=== PATIENT | female | born 1965 | race Caucasian/White ===

== ENCOUNTER 2019-02-04 13:59 | Outpatient (RCR) | payer OTHER, SELFPAY ==
[2019-02-04 14:04] VITALS: BMI 31.6
[2019-02-04 14:14] VITALS: BMI 31.6
== END 2019-05-05 23:59 | disposition home or self-care (01) ==
LOC: ANHDMC 13:59
PROVIDERS: PCP Student in an Organized Health Care Education/Training Program; Visit Provider Student in an Organized Health Care Education/Training Program
DX: Z68.32 Body mass index [BMI] 32.0-32.9, adult (principal); Z71.3 Dietary counseling and surveillance
CPT/HCPCS: 97803

== ENCOUNTER 2019-04-05 10:16 | Emergency (ER) | payer OTHER, SELFPAY ==
[2019-04-05 10:18] VITALS: BP 163/67; PULSE 97; RESP 16; TEMP 37.1; O2SAT 99
--- NOTE | 2019-04-05 10:35 | ED.GENADULT ---
HPI - General Adult General Chief complaint: Wound/Laceration Stated complaint: lip lac Time Seen by Provider: 04/05/19 10:28 Source: patient Mode of arrival: ambulatory Limitations: no limitations History of Present Illness HPI narrative: Patient is a 53-year-old female who presents to emergency department for evaluation of lip laceration that occurred just prior to arrival patient was struck with a trash can lid in the lip sustaining through and through laceration of the lower lip to not include the vermilion border patient notes her tetanus is not up-to-date. . Patient notes mild aching pain worse with touch denies other complaints and is presenting in no distress Related Data Home Medications Medication Instructions Recorded Confirmed cholecalciferol (vitamin D3) unit PO 04/05/19 liothyronine mcg 04/05/19 potassium iodide mg 04/05/19 spironolactone 04/05/19 thyroid (pork) [[place] Thyroid] 04/05/19 Allergies Allergy/AdvReac Type Severity Reaction Status Date / Time epinephrine AdvReac Palpitation Verified 04/05/19 10:51 s Review of Systems Review of Systems: Narrative: CONSTITUTIONAL: Denies fever, chills, or sweats. EYES: Denies redness, or discharge. ENT: Denies rhinorrhea, dental pain SKIN: Positive for laceration MUSCULOSKELETAL: Denies neck pain NEUROLOGIC: Denies headache, numbness PMFSH Family History Family History (Updated 10/28/13 @ 07:13 by DOCTOR UNKNOWN) Father Family history of heart disease in male family member before age 55 Social History Social History Second hand tobacco smoke exposure: No Alcohol intake: never Spiritual care concerns: No Exam Narrative: Exam Narrative: GENERAL: Well-appearing, well-nourished, and in no acute distress. HEAD: Normocephalic, lip laceration EYES: PERRLA and EOMI. ENT: Nares clear, no rhinorrhea or epistaxis. Mucous membranes moist. No dental trauma noted EXTREMITIES: Normal range of motion. No edema. No cervical tenderness SKIN: Warm, dry, no rash. NEURO: No focal deficits. Alert and oriented x3. Cranial nerves II through XII grossly intact. Normal speech and gait PSYCH: Normal mood and affect. Course Course Emergency Course: Patient in the room in no distress aware of case findings treatment plan and diagnosis Vital Signs Vital signs: Vital Signs Temperature 98.8 F 04/05/19 10:18 Pulse Rate 97 04/05/19 10:18 Respiratory Rate 16 04/05/19 10:18 Blood Pressure 163/67 H 04/05/19 10:18 Pulse Oximetry 99 04/05/19 10:18 Temperature 98.8 F 04/05/19 10:18 Pulse Rate 97 04/05/19 10:18 Respiratory Rate 16 04/05/19 10:18 Blood Pressure 163/67 H 04/05/19 10:18 Pulse Oximetry 99 04/05/19 10:18 Procedures Laceration Laceration 1: Date: 04/05/19 Time: 11:22 Site: face Size (cm): 1.5 Description: linear Local Anesthetic: none Pre-repair: wound explored and irrigated ====== Skin Level ====== Skin layer closed with: nylon Size (cm): 6-0 Number of sutures: 3 ====== Subcutaneous Layer ====== ====== Muscle Layer ====== ====== Tendon Layer ====== Medical Decision Making MDM Narrative Medical decision making narrative: Patient had wound closed in the emergency department without complication resting comfortably in the room in no distress felt appropriate for outpatient reevaluation provided with reasons to return Vital Signs Vital Signs: Vital Signs Temperature 98.8 F 04/05/19 10:18 Pulse Rate 97 04/05/19 10:18 Respiratory Rate 16 04/05/19 10:18 Blood Pressure 163/67 H 04/05/19 10:18 Pulse Oximetry 99 04/05/19 10:18 Temperature 98.8 F 04/05/19 10:18 Pulse Rate 97 04/05/19 10:18 Respiratory Rate 16 04/05/19 10:18 Blood Pressure 163/67 H 04/05/19 10:18 Pulse Oximetry 99 04/05/19 10:18 Discharge Plan Discharge
[2019-04-05] MEDS: TETANUS,DIPHTHERIA,AC PERTUSSIS ADULT 0.5 ML (ADACEL) IM (11:03)
== END 2019-04-05 11:31 | disposition home or self-care (01) ==
PROVIDERS: Emergency Provider Emergency Medicine; PCP Student in an Organized Health Care Education/Training Program
DX: S01.511A Laceration without foreign body of lip, initial encounter (principal); W22.8XXA Striking against or struck by other objects, initial encounter
CPT/HCPCS: 12011; 90471; 90715; 99282

== ENCOUNTER 2019-07-14 07:52 | Outpatient (CLI) | payer OTHER, SELFPAY ==
--- NOTE | ~2019-07-14 | MM_ITS ---
EXAMINATION: MM screening [facility] BI w chip HISTORY: Screening mammogram TECHNIQUE: Craniocaudal and mediolateral oblique 3-D tomosynthesis images were obtained and synthetic 2-D images were generated. CAD analysis was submitted and interpreted. COMPARISON: 07/09/2018, 05/22/2017, 03/01/2016 bilateral digital screening mammogram examinations BREAST PARENCHYMAL COMPOSITION: There are scattered areas of fibroglandular density. FINDINGS: There is no evidence of suspicious mass, calcification, or architectural distortion to sugg est malignancy in either breast. There has been no suspicious interval change. IMPRESSION: 1. No mammographic evidence of malignancy. 2. Recommend routine screening mammography in one year. BI-RADS Category 1: Negative Reviewed, dictated and finalized at location A.
== END 2019-07-14 07:53 | disposition home or self-care (01) ==
PROVIDERS: PCP Student in an Organized Health Care Education/Training Program
DX: Z12.31 Encounter for screening mammogram for malignant neoplasm of breast (principal)
CPT/HCPCS: 77063; 77067

== ENCOUNTER 2019-09-27 07:28 | Outpatient (CLI) | payer OTHER, SELFPAY ==
[2019-09-27 08:16] LABS: Basophils Percent Auto 0.1 % (0.2-1.2); Eosinophils Absolute Auto 0.1 K/mm3 (0-0.3); Eosinophils Percent Auto 1.4 % (0-4.4); Hematocrit 44.7 % (37.0-47.0); Hemoglobin 14.8 g/dL (12.0-15.0); Immature Granulocyte Absolute 0.02 K/mm3 (0.00-0.031); Immature Granulocyte Percent A 0.2 % (0-0.5); Lymphocytes Absolute Auto 2.57 K/mm3 (0.9-3.2); Lymphocytes Percent Auto 28.4 % (18.3-44.2); Mean Corpuscular HGB Conc 33.1 g/dl (32-36); Mean Corpuscular Hemoglobin 29.2 pg (26-34); Mean Corpuscular Volume 88.3 fl (80-100); Mean Platelet Volume 10.2 fl (7.4-10.4); Monocytes Absolute Auto 0.4 K/mm3 (0.1-0.6); Monocytes Percent Auto 4.6 % (2.6-8.5); Neutrophils Absolute Auto 5.9 K/mm3 (1.3-6.7); Neutrophils Percent Auto 65.3 % (45.5-73.1); Platelet Count Result 263 k/mm3 (150-375); Red Blood Count 5.06 M/mm3 (4.2-5.4); Red Cell Distribution Width 11.8 % (11.5-14.5); White Blood Count 9.1 K/mm3 (4.5-10.0)
[2019-09-27 08:37] LABS: Alanine Aminotransferase 53 U/L (4-35); Albumin Level 4.5 g/dL (3.5-5.1); Alkaline Phosphatase 72 U/L (38-126); Anion Gap 12.6 mmol/L (7-16); Aspartate Amino Transferase 32 U/L (14-36); Bilirubin,Total 0.5 mg/dL (0.2-1.3); Blood Urea Nitrogen 11 mg/dL (7-17); CRP < 0.5 mg/dL (<1.0); Calcium 9.6 mg/dL (8.4-10.2); Carbon Dioxide 27 mmol/L (22-30); Chloride 100 mmol/L (98-107); Estimated Glomerular Filt Rate > 60; Glucose 96 mg/dL (65-105); Potassium 4.6 mmol/L (3.4-5.0); Sodium 135 mmol/L (137-145)
[2019-09-27 08:59] LABS: Thyroid Stimulating Hormone < 0.015 uIU/mL (0.465-4.680)
[2019-09-27 09:04] LABS: Free T4 Free Thyroxine 0.64 ng/mL (0.78-2.19)
[2019-09-27 13:03] LABS: Cortisol Random 8.08 ug/dL
[2019-10-01 14:13] LABS: Testosterone Free 23.6 pg/mL (0.2-5.0)
[2019-10-02 06:28] LABS: FSH 30.1 mIU/mL (***); LH 21.2 mIU/mL (***); Triiodothyronine T3 Free 2.9 pg/mL (2.3-4.2)
[2019-10-03 17:36] LABS: Estrone 48 pg/mL
[2019-10-03 22:37] LABS: Estradiol, Ultrasensitive 79 pg/mL
[2019-10-04 10:40] LABS: Z Score Female 0.4 SD (-2.0 - +2.0)
== END 2019-09-27 07:29 | disposition home or self-care (01) ==
PROVIDERS: PCP Student in an Organized Health Care Education/Training Program
DX: E03.8 Other specified hypothyroidism (principal); E66.8 Other obesity; R79.82 Elevated C-reactive protein (CRP); E88.81 Metabolic syndrome and other insulin resistance; N95.1 Menopausal and female climacteric states; F52.0 Hypoactive sexual desire disorder
CPT/HCPCS: 36415; 80053; 82533; 82670; 82679; 83001; 83002; 84305; 84402; 84439; 84443; 84481; 85025; 86140

== ENCOUNTER 2020-01-19 06:56 | Outpatient (CLI) | payer OTHER, SELFPAY ==
[2020-01-19 07:41] LABS: Alanine Aminotransferase 40 U/L (4-35); Aspartate Amino Transferase 33 U/L (14-36); Cholesterol 148 mg/dL (0-200); HDL Direct 39 mg/dL; Triglycerides 173 mg/dL (<150)
[2020-01-19 07:50] LABS: Hemoglobin A1C 5.2 % (<5.7)
[2020-01-19 07:52] LABS: LDL Cholesterol Direct 91 mg/dL
[2020-01-19 10:21] LABS: Free T4 Free Thyroxine 1.03 ng/mL (0.78-2.19)
[2020-01-19 10:31] LABS: Hepatitis B Surface Antigen Negative (Negative)
[2020-01-19 10:36] LABS: HAV RESULT Negative (Negative); Hepatitis B Core IgM Result Negative (Negative)
[2020-01-19 10:48] LABS: Hepatitis C Virus Antibody Negative (Negative)
[2020-01-23 00:24] LABS: Homocysteine 4.9 umol/L (<10.4)
[2020-01-24 18:22] LABS: Estradiol, Ultrasensitive 76 pg/mL
[2020-01-24 20:41] LABS: Estrone 45 pg/mL
[2020-01-25 06:58] LABS: Insulin Level Total 5.5 uIU/mL (<=19.6); Thyroglobulin Antibodies <1 IU/mL (<=1); Thyroid Peroxidase Antibodies <1 IU/mL (<9)
[2020-01-26 07:07] LABS: FSH 11.3 mIU/mL (***); LH 3.1 mIU/mL (***); Progesterone 2.1 ng/mL (***); Triiodothyronine T3 Free 4.3 pg/mL (2.3-4.2)
== END 2020-01-19 06:57 | disposition home or self-care (01) ==
PROVIDERS: PCP Student in an Organized Health Care Education/Training Program; Visit Provider Student in an Organized Health Care Education/Training Program
DX: Z13.220 Encounter for screening for lipoid disorders (principal); N95.1 Menopausal and female climacteric states; E34.9 Endocrine disorder, unspecified; Z79.890 Hormone replacement therapy; E03.9 Hypothyroidism, unspecified; R79.82 Elevated C-reactive protein (CRP); E55.9 Vitamin D deficiency, unspecified; D51.9 Vitamin B12 deficiency anemia, unspecified; E53.9 Vitamin B deficiency, unspecified; R94.5 Abnormal results of liver function studies; Z00.00 Encounter for general adult medical examination without abnormal findings; E78.2 Mixed hyperlipidemia; R73.03 Prediabetes; R68.82 Decreased libido; R53.83 Other fatigue; R63.5 Abnormal weight gain; F43.9 Reaction to severe stress, unspecified
CPT/HCPCS: 36415; 80061; 80074; 82306; 82607; 82670; 82679; 83001; 83002; 83036; 83090; 83525; 84144; 84432; 84439; 84450; 84460; 84481; 86376; 86800

== ENCOUNTER 2020-08-28 07:18 | Outpatient (CLI) | payer OTHER, SELFPAY ==
[2020-08-28 08:02] LABS: Basophils Percent Auto 0.1 % (0.2-1.2); Eosinophils Absolute Auto 0.1 K/mm3 (0-0.3); Eosinophils Percent Auto 1.1 % (0-4.4); Hematocrit 42.8 % (37.0-47.0); Immature Granulocyte Absolute 0.04 K/mm3 (0.00-0.031); Immature Granulocyte Percent A 0.4 % (0-0.5); Lymphocytes Absolute Auto 2.53 K/mm3 (0.9-3.2); Lymphocytes Percent Auto 25.5 % (18.3-44.2); Mean Corpuscular HGB Conc 32.7 g/dl (32-36); Mean Corpuscular Hemoglobin 28.9 pg (26-34); Mean Corpuscular Volume 88.4 fl (80-100); Mean Platelet Volume 10.1 fl (7.4-10.4); Monocytes Absolute Auto 0.6 K/mm3 (0.1-0.6); Monocytes Percent Auto 5.8 % (2.6-8.5); Neutrophils Absolute Auto 6.7 K/mm3 (1.3-6.7); Neutrophils Percent Auto 67.1 % (45.5-73.1); Platelet Count Result 270 k/mm3 (150-375); Red Blood Count 4.84 M/mm3 (4.2-5.4); Red Cell Distribution Width 11.5 % (11.5-14.5); White Blood Count 9.9 K/mm3 (4.5-10.0)
[2020-08-28 08:17] LABS: Hemoglobin A1C 5.5 % (<5.7)
[2020-08-28 08:18] LABS: Alanine Aminotransferase 27 U/L (4-35); Albumin Level 4.3 g/dL (3.5-5.1); Alkaline Phosphatase 56 U/L (38-126); Anion Gap 6 mmol/L (8-16); Aspartate Amino Transferase 26 U/L (14-36); Bilirubin,Total 0.4 mg/dL (0.2-1.3); Blood Urea Nitrogen 11 mg/dL (7-17); CRP < 0.5 mg/dL (<1.0); Calcium 9.6 mg/dL (8.4-10.2); Carbon Dioxide 27 mmol/L (22-30); Chloride 107 mmol/L (98-107); Cholesterol 170 mg/dL (0-200); Estimated Glomerular Filt Rate > 60; Glucose 95 mg/dL (65-105); HDL Direct 42 mg/dL; Potassium 4.2 mmol/L (3.4-5.0); Sodium 140 mmol/L (137-145); Triglycerides 304 mg/dL (<150)
[2020-08-28 08:27] LABS: LDL Cholesterol Direct 81 mg/dL
[2020-08-28 08:48] LABS: Cortisol Random 7.16 ug/dL
[2020-08-28 08:49] LABS: Thyroid Stimulating Hormone < 0.015 uIU/mL (0.465-4.680)
[2020-08-28 09:17] LABS: Free T4 Free Thyroxine 0.71 ng/mL (0.78-2.19); Vitamin D 25 Hydroxy 68.2 ng/mL
[2020-08-30 06:41] LABS: Homocysteine 5.8 umol/L (<10.4)
[2020-08-31 13:45] LABS: FSH 13.1 mIU/mL (***); LH 2.6 mIU/mL (***); Progesterone 3.4 ng/mL (***); Triiodothyronine T3 Free 3.5 pg/mL (2.3-4.2)
[2020-09-01 05:42] LABS: Insulin Level Total 5.6 uIU/mL (<=19.6)
[2020-09-01 12:05] LABS: Z Score Female 0.4 SD (-2.0 - +2.0)
[2020-09-01 21:43] LABS: Estrone 25 pg/mL
[2020-09-02 09:55] LABS: Testosterone Free 29.3 pg/mL (0.2-5.0)
[2020-09-02 19:42] LABS: Estradiol, Ultrasensitive 64 pg/mL
== END 2020-08-28 07:19 | disposition home or self-care (01) ==
PROVIDERS: PCP Student in an Organized Health Care Education/Training Program
DX: N95.1 Menopausal and female climacteric states (principal); E34.9 Endocrine disorder, unspecified; Z79.890 Hormone replacement therapy; E03.9 Hypothyroidism, unspecified; E66.8 Other obesity; E88.81 Metabolic syndrome and other insulin resistance; E55.9 Vitamin D deficiency, unspecified; D51.9 Vitamin B12 deficiency anemia, unspecified; E72.11 Homocystinuria; E53.9 Vitamin B deficiency, unspecified; R94.5 Abnormal results of liver function studies; E78.2 Mixed hyperlipidemia; R68.82 Decreased libido; R53.83 Other fatigue; F43.9 Reaction to severe stress, unspecified
CPT/HCPCS: 36415; 80053; 80061; 82306; 82533; 82607; 82670; 82679; 83001; 83002; 83036; 83090; 83525; 84144; 84305; 84402; 84439; 84443; 84481; 85025; 86140

== ENCOUNTER 2020-08-31 07:29 | Outpatient (CLI) | payer OTHER, SELFPAY ==
--- NOTE | ~2020-08-31 | MM_ITS ---
EXAMINATION: MM screening [facility] BI w chip HISTORY: Screening TECHNIQUE: Craniocaudal and mediolateral oblique 3-D tomosynthesis images were obtained and synthetic 2-D images were generated. CAD analysis was submitted and interpreted. COMPARISON: Comparison to multiple prior studies sequentially, with oldest reviewed study dated 02/02. BREAST PARENCHYMAL COMPOSITION: There are scattered areas of fibroglandular density. FINDINGS: There is no evidence of suspicious mass, calcification, or architectural distortion to sugg est malignancy in either breast. There has been no suspicious interval change. IMPRESSION: 1. No mammographic evidence of malignancy. 2. Recommend routine screening mammography in one year. BI-RADS Category 1: Negative Reviewed, dictated and finalized at location A.
== END 2020-08-31 07:30 | disposition home or self-care (01) ==
PROVIDERS: PCP Student in an Organized Health Care Education/Training Program; Visit Provider Student in an Organized Health Care Education/Training Program
DX: Z12.31 Encounter for screening mammogram for malignant neoplasm of breast (principal)
CPT/HCPCS: 77063; 77067

== ENCOUNTER 2020-11-30 14:30 | Outpatient (RCR) | payer OTHER, SELFPAY ==
--- NOTE | 2020-10-24 17:32 | PTOPEVAL ---
INITIAL PHYSICAL THERAPY EVALUATION and PLAN OF CARE Thank you for referring Jelena Dominguez to [facility] [place]Note 2[place]? Jelena is scheduled to be seen for physical therapy? 0-1x/week for 6 weeks. Please review, sign, date and return this plan of care LUDWIN. I agree with and certify that the following plan of care is medically necessary. Referring Physician Date Admitting Provider: Attending Provider: Amarilis De Santiago Referring Provider: *PT Outpatient Evaluation Start: 10/24/20 13:52 Freq: Status: Active Protocol: Document 10/24/20 13:45 BLADIMIR (Rec: 10/24/20 15:04 BLADIMIR [id number]) Therapy Assessment Status Assessment Status Assessment Status Evaluation Outpatient Past Medical History Past Medical History Source of Past Medical History Patient Genitourinary History Hx Other Genitourinary Disorders Yes: urinary frequency, prolapse Endocrine History Hx Hypothyroidism Yes Reproductive History Hx Post Menopausal Yes Evaluation Information Problem Diagnosis urinary frequency, urinary urgency,mixed incontinence, pelvic floor weakness Onset July 2020 Subjective Information Jelena was shaving perineal Query Text:As Reported By Patient/ region getting ready for swim Family suit season - noticed something in vaginal region. Went to see CONGRESSIONAL ASSISTANT - pessary was placed - wrong size - resized at next visit - feeling better. At first visit - increase with bladder retention - 2nd visit - didn't check for retention because she voided more urine. Did not have any pain when noticed prolapse. Surgery scheduled 01/23/2021 - remove uterus, ? 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 Home pellet, baby aspirin, Meds Must Be Re-entered With Each Visit. Metformin XR - for wt not DM, spironloctone Home Setting Home Type House,Multiple Levels Environmental Barriers Stairs, Greater than 4 Living Situation With Spouse Mobility Assistive Devices (Used Last 3 Non
--- NOTE | 2020-11-30 16:02 | PTOPEVAL ---
PHYSICAL THERAPY DISCHARGE SUMMARY Thank you for referring Jelena Dominguez to [facility] Jelena has been seen x 4 visits. She is progressing well in PT - has met goals set. Ready for d/c from PT to HEP. I agree with Jelena's discharge from PT. Referring Physician Date Admitting Provider: Attending Provider: Amarilis De Santiago MD Referring Provider: ) Therapy Assessment Status Assessment Status Assessment Status Discharge Evaluation Information Problem Diagnosis urinary frequency, urinary urgency,mixed incontinence, pelvic floor weakness Subjective Information Jelena having some increase in Query Text:As Reported By Patient/ leakage. Having some Family difficulty with the pessary positioning this past week - noticed more so with need to have bowel movement. Doing okay with the exercises. Jelena perceives that she is 50% improved. Pain Assessment Timing of Pain Assessment Timing of Pain Assessment Assessment Self Report Self Report Pain Level 0 Pain Score Pain Score 0: Self Report Pelvic Health Evaluation Pelvic Floor Assessment Sustained Levator Ani Strength 3/[address] hold Quick Levator Ani Contraction in 15 12 Seconds Pelvic Health Therapy Pelvic Health Exercise Isolated Levator Ani Contraction [address] hold/10 ct relax x Query Text:Position, Hold/Relaxation 5 reps Time, Repetitions Quick Contractions testing - 12 reps Query Text:Position, Repetitions Therapeutic Ball 65 cm ball side/side;front/ Query Text:Movement Direction, back;CW/CCW, figure of 8 15 Repetitions reps Elevator Techniques going up x 4fls 5 ct Query Text:Repetitions, Number of [id number];going down x3 fls Steps Going Up, Number of Steps Going x5 reps;variable x 5 reps Down Resistive 'Shh' Technique long, soft x 5 reps, quick, Query Text:Quick, Hard, Long, Soft, hard x 5 reps Number of Repetitions Relaxation Technique deep breathing for relaxation - urge control - reviewed Other Exercises standing - plie - with mild ER Query Text:Record Sets, Repetitions, of feet - tightening pelvic Resistance and Position floor with knee extension - reviewed Exercise Limitations Muscle Weakness Response to Exercise Maintained Current Level Endurance Good Rehab Teaching Rehab Teaching Teaching Topic Rehab Teaching Topic Components Exercise,Home Program As Pertains To
== END 2020-12-01 13:47 | disposition home or self-care (01) ==
LOC: ANHPT 14:30
PROVIDERS: PCP Student in an Organized Health Care Education/Training Program
DX: R35.0 Frequency of micturition (principal); R33.9 Retention of urine, unspecified; N39.46 Mixed incontinence; N81.89 Other female genital prolapse; M62.89 Other specified disorders of muscle
CPT/HCPCS: 97110; 97161

== ENCOUNTER 2021-08-30 07:22 | Outpatient (CLI) | payer OTHER, SELFPAY ==
[2021-08-30 08:12] LABS: Basophils Percent Auto 0.1 % (0.2-1.2); Eosinophils Absolute Auto 0.1 K/mm3 (0-0.3); Hemoglobin 14.2 g/dL (12.0-15.0); Immature Granulocyte Absolute 0.02 K/mm3 (0.00-0.031); Immature Granulocyte Percent A 0.2 % (0-0.5); Lymphocytes Absolute Auto 2.58 K/mm3 (0.9-3.2); Lymphocytes Percent Auto 28.9 % (18.3-44.2); Mean Corpuscular HGB Conc 33.8 g/dl (32-36); Mean Corpuscular Hemoglobin 29.5 pg (26-34); Mean Corpuscular Volume 87.3 fl (80-100); Monocytes Absolute Auto 0.5 K/mm3 (0.1-0.6); Monocytes Percent Auto 5.2 % (2.6-8.5); Neutrophils Absolute Auto 5.8 K/mm3 (1.3-6.7); Neutrophils Percent Auto 64.6 % (45.5-73.1); Platelet Count Result 274 k/mm3 (150-375); Red Blood Count 4.81 M/mm3 (4.2-5.4); Red Cell Distribution Width 11.4 % (11.5-14.5); White Blood Count 8.9 K/mm3 (4.5-10.0)
[2021-08-30 08:26] LABS: Hemoglobin A1C 5.4 % (<5.7)
[2021-08-30 08:32] LABS: Alanine Aminotransferase 32 U/L (6-35); Albumin Level 4.6 g/dL (3.5-5.1); Alkaline Phosphatase 56 U/L (38-126); Anion Gap 8 mmol/L (8-16); Aspartate Amino Transferase 28 U/L (14-36); Bilirubin,Total 0.6 mg/dL (0.2-1.3); Blood Urea Nitrogen 11 mg/dL (7-17); CRP < 0.5 mg/dL (<1.0); Calcium 9.2 mg/dL (8.4-10.2); Carbon Dioxide 26 mmol/L (22-30); Chloride 104 mmol/L (98-107); Cholesterol 191 mg/dL (0-200); Estimated Glomerular Filt Rate > 60; Glucose 103 mg/dL (65-110); HDL Direct 46 mg/dL; Potassium 4.2 mmol/L (3.4-5.0); Sodium 138 mmol/L (137-145); Triglycerides 155 mg/dL (<150)
[2021-08-30 08:36] LABS: LDL Cholesterol Direct 107 mg/dL
[2021-08-30 09:27] LABS: Thyroid Stimulating Hormone < 0.015 uIU/mL (0.465-4.680); Vitamin B12 > 1000.0 pg/mL (239-931)
[2021-08-30 10:55] LABS: Free T4 Free Thyroxine 0.99 ng/mL (0.78-2.19); Vitamin D 25 Hydroxy 74.3 ng/mL
[2021-09-02 14:16] LABS: FSH 6.4 mIU/mL (***); Insulin Level Total 10.3 uIU/mL (<=19.6); LH 1.9 mIU/mL (***); Triiodothyronine T3 Free 4.2 pg/mL (2.3-4.2)
[2021-09-03 09:45] LABS: Testosterone Free 37.2 pg/mL (0.2-5.0)
[2021-09-04 21:48] LABS: Homocysteine 4.9 umol/L (<10.4)
[2021-09-04 22:34] LABS: Estrone 33 pg/mL
[2021-09-07 21:58] LABS: Estradiol, Ultrasensitive 117 pg/mL
== END 2021-08-30 07:23 | disposition home or self-care (01) ==
LOC: ANHLAB 07:27
PROVIDERS: PCP Student in an Organized Health Care Education/Training Program
DX: N95.1 Menopausal and female climacteric states (principal); E34.9 Endocrine disorder, unspecified; Z79.890 Hormone replacement therapy; E03.9 Hypothyroidism, unspecified; E66.8 Other obesity; E55.9 Vitamin D deficiency, unspecified; D51.9 Vitamin B12 deficiency anemia, unspecified; E72.11 Homocystinuria; E53.9 Vitamin B deficiency, unspecified; R94.5 Abnormal results of liver function studies; E78.2 Mixed hyperlipidemia; R73.03 Prediabetes; R68.82 Decreased libido; R53.83 Other fatigue; F43.9 Reaction to severe stress, unspecified
CPT/HCPCS: 36415; 80053; 80061; 82306; 82533; 82607; 82670; 82679; 83001; 83002; 83036; 83090; 83525; 84402; 84439; 84443; 84481; 85025; 86140

== ENCOUNTER 2021-09-13 08:30 | Outpatient (RCR) | payer OTHER, SELFPAY ==
--- NOTE | 2021-08-16 15:47 | PTOPEVAL ---
PHYSICAL THERAPY EVALUATION AND PLAN OF CARE Thank you for referring Jelena Dominguez to [facility].? The patient is scheduled to be seen for therapy? 2-3X/month for 2months. Please review, sign, date and return this plan of care LUDWIN. I agree with and certify that the following plan of care is medically necessary. Referring Physician Date Attending Provider: Amarilis De Santiago Diagnosis pelvic floor dysfunction Subjective Information She had a hysteretomy Query Text:As Reported By Patient/ secondary to urteran prolapse. Family they placed mesh to sling the bladder. She no longer experiencing leakage. And she feels capable of performing a pelvic floor contraction and she is able to hold for 8 seconds at a time. She is here to work on appropriate lifting techniques and pushing /pulling techniques. Lower Extremity Muscle Strength Testing Hip Strength Bilateral Hip Flexion Strength 5 Normal Hip Extension Strength 4 Good Hip Abduction Strength 4 Good Knee Strength Bilateral Knee Flexion Strength 4+ Good + Knee Extension Strength 5 Normal Muscle Length Testing Two-Joint Hip Flexor Shortened Muscles Short (R) Rectus Femoris,Short (L) Rectus Femoris,Short (R) Ilial Tib Band,Short (L) Ilial Tib Band Piriformis w/Hip Flexion >90 Degrees (L) Moderate Tightness,(R) Severe Tightness Left Hamstring Length -31 Query Text:(90 - 90 Position) Right Hamstring Length -29 Query Text:(90 - 90 Position) PT Clinical Summary Jelena is a 56 yo female presenting to outpatient physical therapy with pelvic floor dysfunction s/p surgical procedure. She presents today with decreased power and endurance pelvic floor contraction and decreased ability to perform a quick contraction. She had hysterectomy and mesh placement 6 months ago and requires education to strengthen pelvic floor muscles to provide education to perform functional tasks safely and with appropriate
--- NOTE | 2021-09-13 09:00 | PTOPEVAL ---
PHYSICAL THERAPY DISCHARGE NOT E Thank you for referring Jelena Dominguez to [facility].? Please review, sign, date and return this plan of care LUDWIN. I agree with and certify that the following plan of care is medically necessary. Referring Physician Date Attending Provider: Amarilis De Santiago Diagnosis pelvic floor dysfunction Subjective Information States that she feels her Query Text:As Reported By Patient/ pelvic floor is fine. She has Family been doing core exercises and stretching hips and piriformis Cervical and Lumbar Muscle Testing Lumbar Strength Upper Abdominal Strength 4-Good- Lower Abdominal Strength 4-Good- Lower Extremity Muscle Strength Testing Hip Strength Bilateral Hip Flexion Strength 5 Normal Hip Extension Strength 5 Normal Hip Abduction Strength 5 Normal Knee Strength Bilateral Knee Flexion Strength 5 Normal Knee Extension Strength 5 Normal Muscle Length Testing Muscle Length Testing Two-Joint Hip Flexor Shortened Muscles Short (R) Rectus Femoris,Short (L) Rectus Femoris Piriformis w/Hip Flexion >90 Degrees (R) Moderate Tightness,(L) Moderate Tightness Left Hamstring Length -31 Query Text:(90 - 90 Position) Right Hamstring Length -29 Query Text:(90 - 90 Position) PT Clinical Summary Jelena is demonstrating good strength and flexibility of hips and is demonstrating good and WFL pelvic floor contraction and strength. she states she has no concerns about her pelvic floor at this time and feels very good about her situation. She is independent in HEP and plans to continue. D/C from formal PT at this time.
== END 2021-09-13 14:42 | disposition home or self-care (01) ==
LOC: ANHPT 08:30
PROVIDERS: PCP Student in an Organized Health Care Education/Training Program
DX: M62.89 Other specified disorders of muscle (principal); Z98.890 Other specified postprocedural states
CPT/HCPCS: 97110; 97112; 97162; 97530

== ENCOUNTER 2021-10-11 16:37 | Outpatient (CLI) | payer OTHER, SELFPAY ==
--- NOTE | ~2021-10-11 | MM_ITS ---
EXAMINATION: MM screening [facility] BI w chip HISTORY: Screening mammogram TECHNIQUE: Craniocaudal and mediolateral oblique 3-D tomosynthesis images were obtained and synthetic 2-D images were generated. CAD analysis was submitted and interpreted. COMPARISON: 08/31/2020, 07/14/2019, 07/09/2018 BREAST PARENCHYMAL COMPOSITION: There are scattered areas of fibroglandular density. FINDINGS: There is no suspicious mass, calcification, or architectural distortion to suggest malignan cy in either breast. There has been no suspicious interval change. IMPRESSION: 1. No mammographic evidence of malignancy. 2. Recommend routine screening mammography in one year. BI-RADS Category 1: Negative Reviewed, dictated and finalized at location A.
== END 2021-10-11 16:38 | disposition home or self-care (01) ==
PROVIDERS: PCP Student in an Organized Health Care Education/Training Program; Visit Provider Obstetrics & Gynecology
DX: Z12.31 Encounter for screening mammogram for malignant neoplasm of breast (principal)
CPT/HCPCS: 77063; 77067

== ENCOUNTER 2021-12-28 07:00 | Outpatient (CLI) | payer OTHER, SELFPAY ==
[2021-12-28 07:45] LABS: Cholesterol 150 mg/dL (0-200); Glucose 112 mg/dL (65-110); HDL Direct 37 mg/dL; Triglycerides 199 mg/dL (<150)
[2021-12-28 07:55] LABS: LDL Cholesterol Direct 87 mg/dL
[2022-01-01 03:20] LABS: Insulin Level Total 6.2 uIU/mL (<=19.6); Thyroglobulin 1.6 ng/mL (2.8-40.9); Thyroglobulin Antibodies <1 IU/mL (<=1); Thyroid Peroxidase Antibodies <1 IU/mL (<9)
[2022-01-02 04:03] LABS: Triiodothyronine T3 Free 4.6 pg/mL (2.3-4.2)
== END 2021-12-28 07:01 | disposition home or self-care (01) ==
PROVIDERS: PCP Student in an Organized Health Care Education/Training Program
DX: N95.1 Menopausal and female climacteric states (principal); E34.9 Endocrine disorder, unspecified; Z79.890 Hormone replacement therapy; E03.9 Hypothyroidism, unspecified; E66.8 Other obesity; E88.81 Metabolic syndrome and other insulin resistance; E55.9 Vitamin D deficiency, unspecified; D51.9 Vitamin B12 deficiency anemia, unspecified; E72.11 Homocystinuria; E53.9 Vitamin B deficiency, unspecified; R94.5 Abnormal results of liver function studies; E78.2 Mixed hyperlipidemia; R68.82 Decreased libido; F43.9 Reaction to severe stress, unspecified
CPT/HCPCS: 36415; 80061; 82947; 83525; 84432; 84439; 84481; 86376; 86800

== ENCOUNTER 2022-03-01 14:34 | Outpatient (CLI) | payer OTHER, SELFPAY ==
[2022-03-01 14:54] LABS: Basophils Percent Auto 0.2 % (0.2-1.2); Eosinophils Absolute Auto 0.1 K/mm3 (0-0.3); Eosinophils Percent Auto 0.9 % (0-4.4); Hematocrit 40.8 % (37.0-47.0); Hemoglobin 13.8 g/dL (12.0-15.0); Immature Granulocyte Absolute 0.03 K/mm3 (0.00-0.031); Immature Granulocyte Percent A 0.3 % (0-0.5); Lymphocytes Absolute Auto 3.24 K/mm3 (0.9-3.2); Lymphocytes Percent Auto 27.4 % (18.3-44.2); Mean Corpuscular HGB Conc 33.8 g/dl (32-36); Mean Corpuscular Hemoglobin 29.4 pg (26-34); Mean Platelet Volume 9.6 fl (7.4-10.4); Monocytes Absolute Auto 0.6 K/mm3 (0.1-0.6); Monocytes Percent Auto 5.3 % (2.6-8.5); Neutrophils Absolute Auto 7.8 K/mm3 (1.3-6.7); Neutrophils Percent Auto 65.9 % (45.5-73.1); Platelet Count Result 288 k/mm3 (150-375); Red Blood Count 4.69 M/mm3 (4.2-5.4); Red Cell Distribution Width 11.9 % (11.5-14.5); White Blood Count 11.8 K/mm3 (4.5-10.0)
== END 2022-03-01 14:35 | disposition home or self-care (01) ==
LOC: ANHLAB 14:36
PROVIDERS: PCP Student in an Organized Health Care Education/Training Program; Visit Provider Student in an Organized Health Care Education/Training Program
DX: Z00.00 Encounter for general adult medical examination without abnormal findings (principal); Z13.29 Encounter for screening for other suspected endocrine disorder; Z13.228 Encounter for screening for other metabolic disorders; Z13.0 Encounter for screening for diseases of the blood and blood-forming organs and certain disorders involving the immune mechanism
CPT/HCPCS: 36415; 85025

== ENCOUNTER 2023-07-10 07:21 | Outpatient (CLI) | payer OTHER, SELFPAY ==
[2023-07-10 08:32] LABS: Basophils Percent Auto 0.1 % (0.2-1.2); Eosinophils Absolute Auto 0.1 K/mm3 (0-0.3); Eosinophils Percent Auto 0.6 % (0-4.4); Hematocrit 43.4 % (37.0-47.0); Hemoglobin 14.6 g/dL (12.0-15.0); Immature Granulocyte Absolute 0.02 K/mm3 (0.00-0.031); Immature Granulocyte Percent A 0.2 % (0-0.5); Lymphocytes Absolute Auto 1.86 K/mm3 (0.9-3.2); Lymphocytes Percent Auto 22.9 % (18.3-44.2); Mean Corpuscular HGB Conc 33.6 g/dl (32-36); Mean Corpuscular Hemoglobin 30.3 pg (26-34); Mean Platelet Volume 10.4 fl (7.4-10.4); Monocytes Absolute Auto 0.4 K/mm3 (0.1-0.6); Monocytes Percent Auto 4.8 % (2.6-8.5); Neutrophils Absolute Auto 5.8 K/mm3 (1.3-6.7); Neutrophils Percent Auto 71.4 % (45.5-73.1); Platelet Count Result 258 k/mm3 (150-375); Red Blood Count 4.82 M/mm3 (4.2-5.4); Red Cell Distribution Width 11.3 % (11.5-14.5); White Blood Count 8.1 K/mm3 (4.5-10.0)
[2023-07-10 09:03] LABS: Alanine Aminotransferase 32 U/L (6-35); Albumin Level 4.6 g/dL (3.5-5.1); Alkaline Phosphatase 49 U/L (38-126); Anion Gap 7 mmol/L (4-12); Aspartate Amino Transferase 25 U/L (14-36); Blood Urea Nitrogen 13 mg/dL (7-17); Carbon Dioxide 27 mmol/L (22-30); Chloride 105 mmol/L (98-107); Cholesterol 150 mg/dL (0-200); Estimated Glomerular Filt Rate > 60; Glucose 92 mg/dL (65-110); HDL Direct 44 mg/dL; Potassium 4.3 mmol/L (3.4-5.0); Sodium 139 mmol/L (137-145); Triglycerides 107 mg/dL (<150)
[2023-07-10 09:14] LABS: LDL Cholesterol Direct 87 mg/dL
[2023-07-10 09:25] LABS: Thyroid Stimulating Hormone < 0.015 uIU/mL (0.465-4.680)
[2023-07-10 09:43] LABS: Hemoglobin A1C 4.8 % (<5.7)
[2023-07-10 13:38] LABS: Free T4 Free Thyroxine 1.03 ng/mL (0.78-2.19); Vitamin D 25 Hydroxy 75.2 ng/mL
[2023-07-11 12:38] LABS: FSH 4.4 mIU/mL; LH 1.3 mIU/mL; Progesterone <0.5 ng/mL
[2023-07-11 15:08] LABS: Insulin Level Total 9.2 uIU/mL
[2023-07-11 16:19] LABS: CRP, High Sensitivity 3.5 mg/L
[2023-07-14 00:13] LABS: Testosterone Free 26.1 pg/mL (0.2-5.0)
[2023-07-14 12:58] LABS: Homocysteine 5.3 umol/L (<10.4)
[2023-07-14 13:43] LABS: Thyroid Peroxidase Antibodies <1 IU/mL (<9)
[2023-07-17 21:48] LABS: Estrone 60 pg/mL
[2023-07-20 00:35] LABS: Estradiol, Ultrasensitive 111 pg/mL
[2023-07-30 12:41] LABS: IGFBP-1 11
== END 2023-07-10 07:22 | disposition home or self-care (01) ==
PROVIDERS: PCP Student in an Organized Health Care Education/Training Program; Referring Provider Obstetrics & Gynecology
DX: N95.1 Menopausal and female climacteric states (principal); E34.9 Endocrine disorder, unspecified; Z79.890 Hormone replacement therapy; E03.9 Hypothyroidism, unspecified; E66.8 Other obesity; E88.810 Metabolic syndrome; E55.9 Vitamin D deficiency, unspecified; D51.9 Vitamin B12 deficiency anemia, unspecified; E72.11 Homocystinuria; E53.9 Vitamin B deficiency, unspecified; R94.5 Abnormal results of liver function studies; E78.2 Mixed hyperlipidemia; R68.82 Decreased libido; R53.83 Other fatigue; F43.9 Reaction to severe stress, unspecified
CPT/HCPCS: 36415; 80053; 80061; 82306; 82533; 82607; 82670; 82679; 83001; 83002; 83036; 83090; 83525; 84144; 84402; 84439; 84443; 84481; 85025; 86141; 86376; 86800

== ENCOUNTER 2024-02-17 08:12 | Outpatient (CLI) | payer OTHER, SELFPAY ==
--- NOTE | ~2024-02-17 | MM_ITS ---
EXAMINATION: MM screening [facility] BI w chip HISTORY: Screening TECHNIQUE: Craniocaudal and mediolateral oblique 3-D tomosynthesis images were obtained and synthetic 2-D images were generated. CAD analysis was submitted and interpreted. COMPARISON: Comparison to multiple prior studies sequentially, with oldest reviewed study dated 02/02. BREAST PARENCHYMAL COMPOSITION: Not dense: There are scattered areas of fibroglandular density. FINDINGS: There is no evidence of suspicious mass, calcification, or architectural distortion to sugg est malignancy in either breast. There has been no suspicious interval change. IMPRESSION: 1. No mammographic evidence of malignancy. 2. Recommend routine screening mammography in one year. BI-RADS Category 1: Negative Reviewed, dictated and finalized at location B. 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
== END 2024-02-17 08:13 | disposition home or self-care (01) ==
PROVIDERS: PCP Student in an Organized Health Care Education/Training Program; Visit Provider Obstetrics & Gynecology
DX: Z12.31 Encounter for screening mammogram for malignant neoplasm of breast (principal)
CPT/HCPCS: 77063; 77067

== ENCOUNTER 2024-06-17 07:18 | Outpatient (CLI) | payer OTHER, SELFPAY ==
--- OUTSIDE RECORDS SUMMARY | 2024-06-17 07:30 | XMS_ITS | Clinical Summary ---
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 This disclosure is being madepursuant to the Care Everywhere program and may not contain all information available regarding this patient. Last updated 17.[facility] Allergies No known active allergies Medications * Be aware that medications may not be up to date on this document. Alwaysverify current medications with the patient. etonogestrel-et hinyl estradiol (NUVARING) 0.12-0.015 MG/24HR vaginal ring Insert 1 Device into the vagina once. Remove ring after 3 weeks, followed by 1 week-rest, then insert new ring Active beclomethasone (BECONASE AQ) 42 MCG/SPRAY [place] 1 [place] into the nose 2 times daily. Active imiquimod (ALDARA) 5 % cream Apply to affected area Two times a week. Active clobetasol emollient (CLOBETASOL PROPIONATE E) 0.05 % cream Apply to affected area 2 times daily. Active levothyroxine (SYNTHROID) 50 MCG tablet Take 1 Tab by mouth daily before breakfast. 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 Gender Identity Not on file Sexual Orientation Not on file Last Filed Vital Signs Vital Sign Reading Time Taken Comments Blood Pressure 140/70 07/06/2010 8:46 AM CDT Pulse 66 07/06/2010 8:46 AM CDT Temperature - - Respiratory Rate 12 07/06/2010 8:46 AM CDT Oxygen Saturation - - Inhaled Oxygen Concentration - - Weight 83.9 kg (185 lb) 07/06/2010 8:46 AM CDT Height 162.6 cm (5' 4 ) 07/06/2010 8:46 AM CDT Body Mass Index 31.76 07/06/2010 8:46 AM CDT Plan of Treatment Health Maintenance Due Date Last Done Comments COLOGUARD (AGES 45-75) - COL ON CA SCREENING 1965 COLON MONITORING 1965 COLONOSCOPY - COLON CA SCREENING 1965 CT COLONOGRAPHY - COLON CA SCREENING 1965 Colorectal Cancer Screening 1965 FIT - COLON CA SCREENING 1965 FLEX SIG - COLON CA SCREENING 1965 MAMMOGRAM 1965 HIV SCREENING 1980 HEPATITIS C SCREENING 07/04/1983 DTAP/TDAP/TD VACCINES (1 - Tdap) 1984 HEPATITIS B VACCINE (1 of 3 - 19+ 3-dose series) 1984 LIPID TESTING 12/29/2014 12/29/2009, 06/21/2009 PNEUMOCOCCAL VACCINE 50+ (1 of 1 - PCV) 07/09/2015 ZOSTER VACCINE (1 of 2) 07/09/2015 COVID-19 VACCINE ( - 2023-2 5 season) 2023 DEPRESSION SCREENING 03/03/2024 INFLUENZA VACCINE (Season Ended) 2024 HIB VACCINE Aged Out No longer eligi ble based on patient's age to complete this topic HPV VACCINE Aged Out No longer eligi ble based on patient's age to complete this topic MENINGOCOCCAL (Group B) VACCINE SHARED DECISION-MAKING Aged Out No longer eligible based on patient's age to complete this topic MENINGOCOCCAL GROUPS A/C/Y/W VACCINE Aged Out No longer eligible b ased on patient's age to complete this topic Procedures Procedure Name Priority Date/Time Associated Diagnosis Comments LIPID PROFILE 12/29/2009 7:40 AM CDT from Last 3 Months or Most Recently Relevant to Health Maintenance Results * LIPID PROFILE (12/29/2009 7:40 AM CDT) Cholesterol 181 125 - 200 mg/dL [facility] Comment: Test Performed at: [facility] [employer] [address] [place] [address] LUTHER PARRA DO,MPH HDL Cholesterol 54 > OR = 46 mg/dL [facility] Triglycerides 146 <150 mg/dL [facility] LDL Calculated 98 <130 mg/dL (calc) [facility] Comment: Desirable range <100 mg/dL for patients with CHD or diabetes and <70 mg/dL for diabetic patients with known heart disease. CHOL/HDLC RATIO 3.4 < OR = 5.0 (calc) [facility] 12/29/2009 7:40 AM CDT 12/30/2009 8:16 AM CDT us Lit Leonard MD LAB - CHEMISTRY ORDERABLES F inal Result [facility] [id number] [place] [address] from Last 3 Months or Most Recently Relevant to Health Maintenance
--- OUTSIDE RECORDS SUMMARY | 2024-06-17 07:30 | XMS_ITS | Clinical Summary ---
Author Organization [place] [address] [facility] Address [address] [place] [address] Care Team Providers Care Street Light Mechanic Name Role Phone Diego Stacy DO Primary Care Provide r Filippo Alcaraz DO Unavailable [phone] Allergies Active Allergy Reactions Criticality Noted Date Comments Epinephrine Palpitations,Sweating Low 10/06/2018 shakes Medications cholecalciferol (VITAMIN D-3) 5,000 unit capsuleIndicati ons:Vitamin D Deficiency Take 1 capsule (5,000 Units total) by mouth every morning Active aspirin 81 mg enteric coated tabletIndicatio ns:prevention of thrombosis Take 1 tablet (81 mg total) by mouth nightly Active thyroid (ARMOUR THYROID) 180 mg tabletIndicatio ns:hypothyroidi sm Take 1 tablet (180 mg total) by mouth every morning 0 Active guaiFENesin-pse udoephedrine (MUCINEX D) 600-60 mg per 12 hr tablet Take 1 tablet by mouth as needed for congestion 1 Active liothyronine (CYTOMEL) 5 mcg tabletIndicatio ns:hypothyroidi sm Take by mouth 2 (two) times a day 10 mcg After breakfast, 5 mcg after lunch 8 Active spironolactone (ALDACTONE) 50 mg tabletIndicatio ns:hair growth Take 1 tablet (50 mg total) by mouth nightly 0 Active testosterone 50 mg pelletIndicatio ns:prevention 440 mg by Not Applicable route every 4 (four) months Active ESTRADIOL IMPLANTIndicati ons:prevention 25 mg by implant route every 4 (four) months pellets Active docosahexaenoic acid/epa (FISH OIL ORAL)Indication s:supplement Take 1 tablet by mouth nightly Active BIOTIN ORAL Take 1 capsule by mouth nightly Active DIETARY SUPPLEMENT ORALIndications :supplement Take 2 Doses by mouth nightly Throne Basic Nutrients Active DIETARY SUPPLEMENT ORAL Take 1 Dose by mouth every morning Dim 250 Active ANASTROZOLE, BULK, MISCIndications :prevention 10 mg every 4 (four) months pellets Active metFORMIN XR (GLUCOPHAGE XR) 750 mg 24 hr tablet TAKE 2 TABLETS BY MOUTH ONCE DAILY WITH A MEAL. 2 Active testosterone, bulk, powder 0 3 Active [place] Thyroid 30 mg tablet 3 Active estradioL (ESTRACE) 0.01 % (0.1 mg/gram) vaginal cream INSERT 1 GRAM VAGINALLY TWICE WEEKLY AT BEDTIME 42.5 g 3 4 Active Active Problems Problem Noted Date Diagnosed Date Uterovaginal prolapse 09/05/2020 Overview (09/05/2020): Added automatically from request for surgery [id number] Vitamin D deficiency 10/06/2018 Rosacea 10/06/2018 Insulin resistance 10/06/2018 BMI 32.0-32.9,adult 10/06/2018 H/O cold sores 10/06/2018 Hair loss disorder 10/06/2018 Low serum testosterone level in female 9 Influenza A 03/05/2017 Chronic sinusitis 12/15/2013 Edema 09/21/2012 Hypothyroidism 09/29/2009 Depression 09/29/2009 HLD (hyperlipidemia) 09/29/2009 Rhinitis 09/29/2009 Immunizations Immunization Administration Dates Next Due Influenza, Quadrivalent, Split, Intramuscular Influenza, Unspecified 12/24/2016 Pfizer SARS-CoV-2 Monovalent Vaccination (12+ Yrs) PURPLE 03/12/2020,02/21/2020 Tdap 04/05/2019 Surgical History Surgery Date Site/Laterality Comments SINUS SURGERY Bilateral 1992, 2013 HYSTERECTOMY 01/23/2021 supracervical hyst ABDOMINAL SACROCOLPOPEXY 01/23/2021 BLADDER SUSPENSION 01/23/2021 Medical History Medical History Date Comments Hx Other Medical thyroid disease ; Comments: JEP 01/14/2014 - Hx Other Medical sinus surgery; Comments: NORBERTO 01/14/2014 - Hypothyroidism Current use of aspirin PONV (postoperative nausea and vomiting) Family History Medical History Relation Name Comments Heart disease Father Arthritis Mother Atrial fibrillation Mother Anesthesia problems Neg Hx Relation Name Status Comments Father Alive Mother Alive Social History Tobacco Use Types Packs/Day Years Used Date Smoking Tobacco: Never Passive Smoke Exposure: Never Smokeless Tobacco: Never Tobacco Cessation:Counseling Given: Not Answered Alcohol Use Standard Drinks/Week Comments Yes 0 (1 standard drink = 0.6 oz pur e alcohol) AUDIT-C Answer Date Recorded Q1: How often do you have a drink containing alc ohol? Monthly or less 01/23/2021 Q2: How many drinks containi ng alcohol do you have on a typical day when you are drinking? 1 or 2 01/23/2021 Q3: How often do you have si x or more drinks on one occasion? 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 Gender Identity Not on file Sexual Orientation Straight 11/20/2020 11 :04 AM CDT Obstetrics History Para Term AB IAB SAB Ectopic Multiple Livin g Live Births 4 4 4 4 4 Date Outcome GA Total Labor Labor/2nd/3rd Weight Sex Type Anes PTL Dara A1 A5 Name Clin Term Vag-S pont Living Term Vag-S pont Living Term Vag-S pont Living Term Vag-S pont Living Last Filed Vital Signs Vital Sign Reading Time Taken Comments Blood Pressure 130/94 12/18/2023 1:09 PM CDT Pulse 72 10/09/2022 10:30 AM CDT Temperature 36.6 C (97.9 F) 10/09/2022 10:30 AM CDT Respiratory Rate 18 10/09/2022 10:30 AM CDT Oxygen Saturation 99% 10/09/2022 10:30 AM CDT Inhaled Oxygen Concentration - - Weight 67.1 kg (148 lb) 12/18/2023 1:09 PM CDT Height 162.6 cm (5' 4 ) 12/18/2023 1:09 PM CDT Body Mass Index 25.4 12/18/2023 1:09 PM CDT Plan of Treatment Health Maintenance Due Date Last Done Comments Colon Cancer Screening-Colonoscopy 1965 Depression Screening 1965 Hepatitis C Screening 1965 Hepatitis B Screening 07/09/1983 Pneumococcal vaccine <65 (1 of 2 - PCV) 1984 Zoster Vaccine (1 of 2) 1984 Covid-19 Vaccine (3 - Pfizer risk series) 04/09/2020 03/12/2020, 02/21/2020 Influenza Vaccine (#1) 2023 3, 12/12/2021, 12/12/2020, Additional history exists Breast Cancer Screening-Mammogram 11/27/2023 023 Regular Well Visit/Exam 18-64 09/02/2024, 08/29/2022, 08/27/2021, Additional history exists DTaP/Tdap/Td Vaccine (2 - Td or Tdap) 04/05/2029 04/05/2019 Cervical Cancer Screening Discontinued 2023, 08/29/2022, 08/27/2021, Additional history exists Medical Devices Implanted Type Area Family Therapist Device Identifier Shelf Expiration Date Model / Serial / Lot [employer] Ruddy [id number] Upsylon 35.4cm Elongation Profile Lightweight Large Pore Low - [id number] Implanted:Qty: 1 on 01/23/2021 by Amarilis De Santiago MD at [facility] Mesh N/A: Vagina [employer] [id number] 11/30/2022 [id number] / / [id number] [employer] [facility] [id number] Tvt Prolene 45x1.1cm Tape Mesh Transvaginal Blue - [id number] Implanted:Qty: 1 on 01/23/2021 by Amarilis De Santiago MD at [facility] Mesh N/A: Pelvis [employer] [id number] 08/31/2023 [id number] / / [id number] Procedures Procedure Name Priority Date/Time Associated Diagnosis Comments THINPREP IMAGING PAP AND HPV MRNA E6/E7 REFLEX HPV 16,18/45 Routine 09/03/2023 11:42 AM CDT Routine gynecological examination SCREENING MAMMOGRAM BILATERAL W ATIF Schedule Routine, Read Routine (OP Routine) 11/26/2022 3:06 PM CDT Routine gynecological examination Encounter for screening mammogram for malignant neoplasm of breast from Last 3 Months or Most Recently Relevant to Health Maintenance Results * ThinPrep(R) Imaging Pap and HPV mRNA E6/E7 Reflex HPV 16,18/45 (09/03/2023 11:42 AM CDT) CLINICAL INFORMATION: [facility] Comment:None given LMP [facility] Comment:NONE GIVEN Previous Pap [facility] Comment:NONE GIVEN Prev. Bx [facility] Comment:NONE GIVEN SOURCE: [facility] Comment:None given Pap, specimen adequacy [facility] Comment: Satisfactory for evaluation. Endocervical/transformation zone component present. HPV interp [facility] Comment: Cytology Results: Negative for intraepithelial lesion or malignancy. COMMENTS [facility] Comment: This Pap test has been evaluated with computer assisted technology. 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 [place] [address] Comment [facility] Comment: EXPLANATORY NOTE: The Pap is a screening test for cervical cancer. It is not a diagnostic test and is subject to false negative and false positive results. It is most reliable when a satisfactory sample, regularly obtained, is submitted with relevant clinical findings and history, and when the Pap result is evaluated along with historic and current clinical information. Human papillomavirus RNA, High Risk E6/E7 Not Detected Not Detected [facility] [employer] Anatoly Comment: Methodology: Equity Analyst-Mediated Amplification This assay detects E6/E7 viral messenger RNA (mRNA) from 14 high-risk HPV types (16,18,31,33,35,39,45,51,52,56,58,59,66,68). Cervical sources are required for HPV testing. If a vaginal source from a patient who has had a total hysterectomy with removal of cervix was submitted, please contact the testing laboratory for alternative testing options. For additional information, please refer to http://education.[facility]/faq/FDV724c9 (This link if provided for information/ educational purposes only.) Swab 09/03/2023 11:4 2 AM CDT 09/03/2023 9:22 PM CDT Filippo Alcaraz DO LAB CYTOLOGY ORDERABLES Final Result [facility] [address] [place] [address] [facility] [address] [place] [address] * Screening Mammogram Bilateral W Atif (11/26/2022 3:06 PM CDT) Anatomical Region Laterality Modality Breast Bilateral Mammography 12/03/2022 8:04 PM CDT Impressions 12/03/2022 8:04 PM CDT There is no mammographic evidence of malignancy. A 1 year screening mammogram is recommended. BI-RADS: 1 - Negative. The patient has been or will be contacted. The patient will be entered into a reminder system with a target due date of 1 year for her next mammogram. Electronically signed by: REESE PRINCE Narrative 12/03/2022 8:04 PM CDT EXAMINATION: SCREENING MAMMOGRAM BILATERAL W ATIF ORDERING HEALTHCARE PROVIDER: FILIPPO ALCARAZ HISTORY: Routine screening mammography. COMPARISON: 10/11/2021, 08/31/2020, 07/14/2019. TECHNIQUE: CC and MLO views of both breasts were obtained with digital technique using digital breast tomosynthesis with C view. Computer aided detection was utilized. FINDINGS: DENSITY: The breasts have scattered areas of fibroglandular density. BREASTS: There is no new suspicious finding in either breast on mammogram. us Filippo Alcaraz DO IMG MAMMO PROCEDURES Fi nal Result from Last 3 Months or Most Recently Relevant to Health Maintenance Insurance [facility] [employer] Address: [facility] [id number] [place] [address] [facility] [employer] Address: [address] [place] [address] [facility] Advance Directives For more information, please contact: [phone] * Full Code (Latest Code Status on File) Date Activated Date Inactivated Comments 01/23/2021 4:36 PM 01/24/2021 1:[address] Light Mechanic Relationship Specialty Start Date End Date Diego Stacy DO [address] [place] [address] PCP - General Family Medicine 11/29/19 [place] [address] [place] [address] Consulting Physician Obstetrics and Gynecology 08/16/20
--- OUTSIDE RECORDS SUMMARY | 2024-06-17 07:30 | XMS_ITS | Referral Summary ---
Author Organization [place] [address] [facility] Address [address] [place] [address] Care Team Providers Care Software Deployment Engineer Name Role Phone Diego Stacy DO Primary Care Provide r Syeda Alcaraz DO Unavailable [phone] Allergies Active Allergy Reactions Criticality Noted Date [...] Active testosterone, bulk, powder 0 3 Active [place] Thyroid 30 mg tablet 3 Active estradioL (ESTRACE) 0.01 % (0.1 mg/gram) vaginal cream INSERT 1 GRAM VAGINALLY TWICE WEEKLY AT BEDTIME 42.5 g 3 4 Active Active Problems Problem Noted Date Diagnosed Date Uterovaginal prolapse 09/05/2020 Overview (09/05/2020): Added automatically from request for surgery [id number] Vitamin D deficiency 10/06/2018 Rosacea 10/06/2018 Insulin [...] Vaccination (12+ Yrs) PURPLE 03/12/2020,02/21/2020 Tdap 04/05/2019 Social History Tobacco Use Types Packs/Day Years [...] on file 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 Mesh N/A: Vagina [employer] [id number] 11/30/2022 [id number] / / [id number] [employer]iti [facility] [id number] Tvt Prolene 45x1.1cm Tape Mesh Transvaginal Blue - [id number] Implanted:Qty: 1 on 01/23/2021 by Amarilis De Santiago MD at [facility] Mesh N/A: Pelvis [employer] [id number] 08/31/2023 [id number] / / [id number] Procedures Procedure Name Priority Date/Time Associated Diagnosis [...] 16,18/45 (09/03/2023 11:42 AM CDT) CLINICAL INFORMATION: [facility] Comment:None given LMP [facility] Comment:NONE GIVEN Previous Pap [facility] Comment:NONE GIVEN Prev. Bx [facility] Comment:NONE GIVEN SOURCE: [facility] Comment:None given Pap, specimen adequacy [facility] Comment: Satisfactory for evaluation. Endocervical/transformation zone component present. HPV interp [facility] Comment: Cytology Results: Negative for intraepithelial lesion or malignancy. COMMENTS [facility] Comment: This Pap test has been evaluated with computer assisted technology. [place] Pumper [facility] Comment: ZEKE GRANDE(ASCP) CT Screening location: [place] [address] [place] [address] Comment [facility] Comment: EXPLANATORY NOTE: The Pap is [...] High Risk E6/E7 Not Detected Not Detected [facility] [employer] Comment: Methodology: Panelboard Operator-Mediated Amplification This assay detects E6/E7 viral messenger RNA (mRNA) from 14 high-risk HPV types (16,18,31,33,35,39,45,51,52,56,58,59,66,68). Cervical sources are required for HPV testing. If a vaginal source from a patient who has had a total hysterectomy with removal of cervix was submitted, please contact the testing laboratory for alternative testing options. For additional information, please refer to [email or web address]faq/FAD359l5 (This link if provided for information/ educational purposes only.) Swab 09/03/2023 11:4 2 AM CDT 09/03/2023 9:22 PM CDT Syeda Alcaraz DO LAB CYTOLOGY ORDERABLES Final Result [facility] [address] [place] [address] [facility] [address] [place] [address] * Screening Mammogram Bilateral W Atif (11/26/2022 [...] her next mammogram. Electronically signed by: REESE Sutherland 12/03/2022 8:04 PM CDT EXAMINATION: SCREENING MAMMOGRAM BILATERAL W ATIF ORDERING HEALTHCARE PROVIDER: SYEDA ALCARAZ HISTORY: Routine screening mammography. COMPARISON: 10/11/2021, 08/31/2020, 07/14/2019. TECHNIQUE: CC and MLO views of both breasts were obtained with digital technique using digital breast tomosynthesis with C view. Computer aided detection was utilized. FINDINGS: DENSITY: The breasts have scattered areas of fibroglandular density. BREASTS: There is no new suspicious finding in either breast on mammogram. us Syeda Alcaraz DO IMG MAMMO PROCEDURES Fi nal Result from Last 3 Months or Most Recently Relevant to Health Maintenance Insurance [employer] Address: [address] [place] [address] [facility] [employer] Address: [facility] [address] [place] [address] [facility] Advance Directives For more information, please contact: [phone] * Full Code (Latest Code Status on File) Date Activated Date Inactivated Comments 01/23/2021 4:36 PM 01/24/2021 1:47 PM Care Teams Software Deployment Engineer Relationship Specialty Start Date End Date Diego Stacy DO [address] [place] [address] PCP - General Family Medicine 11/29/19 [place] [address] [place] [address] Consulting Physician Obstetrics and Gynecology 08/16/20
--- OUTSIDE RECORDS SUMMARY | 2024-06-17 07:30 | XMS_ITS | Encounter Summary ---
Author Organization [facility] Address [address] [place] [address] Care Team Providers Care Forge Helper Name Role Phone Diego Stacy DO Primary Care Provider + Encounter Details Date Type Department Care Team (Late st Contact Info) Description 09/25/2021 NBA Math Hoopshart Message Enc [facility] Family & Internal Medicine [facility] [address] [place] [address] Diego Stacy DO [address] [place], [place] [id number] clobetasol cream refill Social History Tobacco Use Types Packs/Day Years Used Date Smoking Tobacco: Never Smokeless Tobacco: Never Alcohol Use Standard Drinks/Week Comments Yes 0 (1 standard drink = 0.6 oz pur e alcohol) occ PHQ-2 Answer Date Recorded PHQ-2 Score - If the patient scores above 3, please move on to questions 3-9 0 02/01/2021 Comments No Sex and Gender Information Value Date Recorded Sex Assigned at Female 05/27/2024 7:55 AM CDT Legal Sex Female 8:13 PM CDT Gender Identity Female 05/27/2024 7:55 AM CDT Sexual Orientation Not on file 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
--- OUTSIDE RECORDS SUMMARY | 2024-06-17 07:30 | XMS_ITS | Clinical Summary ---
Author Organization [facility] Address [address] [place] [address] Care Team Providers Care Turf Manager Name Role Phone Diego Stacy Primary Care Provider + Allergies Active Allergy Reactions Criticality Noted Date Comments Epinephrine Tachycardia 10/06/2018 Medications liothyronine 5 MCG Tab Take 3 tablets (15 mcg total) by mouth daily. Take 2 tabs daily 4 8 Active vitamin D3, cholecalciferol, 5000 UNITS capsule Take 1 tablet by mouth daily. Active Melba-3 Fatty Acids (OMEGA-3 FISH OIL) 1200 MG Cap Take 2 capsules by mouth daily. Active aspirin EC (ECOTRIN) 81 MG tablet Take 1 tablet (81 mg total) by mouth daily. Active testosterone 50 MG pelletIndication s:every 4 months 390 mg by Implant route once. Indications: every 4 months Active spironolactone 50 MG tablet 0 Active ARMOUR THYROID 180 MG Tab Take 1 tablet by mouth daily. 0 Active Biotin 5000 MCG Cap Take 1 Can by mouth daily. Active Anastrozole Powder 10 mg every 4 (four) months. Active estradiol 0.1 MG/GM vaginal cream 2 Active clobetasol (TEMOVATE) 0.05 % creamIndications :Rosacea Apply 1 Pump topically 2 (two) times daily. To back, stomach, legs and arms 60 g 1 2 Active estradiol (ESTRACE) 0.1 MG/GM vaginal cream Place 1 g vaginally. Twice a week 2 Active polyethylene glycol (GLYCOLAX) 17 GM/SCOOP powderIndication s:Slow transit constipation USING MEASURING CAP MIX 17GM IN 240 ML WATER AND DRINK DAILY 510 g 5 4 Active valACYclovir (VALTREX) 1 g tabletIndication s:H/O cold sores Take 1 tablet (1,000 mg total) by mouth 2 (two) times daily as needed. 21 tablet 5 Active metFORMIN XR (GLUCOPHAGE-XR) 750 MG 24 hr tablet Take 1 tablet (750 mg total) by mouth daily with breakfast. 4 Active pseudoephedrine- guaiFENesin ER (EQ MUCUS-D) 60-600 MG TABLET SR 12 HR 12 hr tabletIndication s:Congestion of nasal sinus TAKE 1 TABLET BY MOUTH TWICE DAILY NEEDED FOR CONGESTION 108 tablet 5 Active metFORMIN 500 MG tablet Take 1500 nightly 025 Discontin ued(Formu jessi change) pseudoephedrine- guaiFENesin ER (EQ MUCUS-D) 60-600 MG TABLET SR 12 HR 12 hr tabletIndication s:Congestion of nasal sinus TAKE 1 TABLET BY MOUTH TWICE DAILY NEEDED FOR CONGESTION 108 tablet 4 025 Discontin ued(Reord er) Active Problems Problem Noted Date Diagnosed Date Rosacea 10/06/2018 Vitamin D deficiency 10/06/2018 Low serum testosterone level in female 9 H/O cold sores 10/06/2018 Insulin resistance 10/06/2018 Hypothyroidism 09/29/2009 Resolved Problems Problem Noted Date Diagnosed Date Resolved Date Uterovaginal prolapse 09/05/20202020 Overview (02/01/2021): Added automatically from request for surgery [id number] Cough with sputum 12/10/2012 10/06/2018 Depression 09/29/2009 10/06/2018 Encounters Date Type Department Care Team Description 05/27/2024 8:00 AM CDT Office Visit [facility] Family & Internal Medicine [address] [phone] Diego Stacy, DO Physical (Patient presents for annual physical. The patient does not have concerns at this time. ) 05/27/2024 Telephone [facility] Family & Internal Medicine [address] [phone] Diego Stacy, Record Request 05/27/2024 Travel from Last 3 Months Immunizations Immunization Administration Dates Next Due Fluzone 6 Months+ Quad (0.5 mL Prefilled Syringe) 12/12/2021 Influenza (Generic) 12/17/2023,12/24/2016,2014 Influenza Adult (Generic) 12/02/2023,12/13/2022, 12/12/2020 Tdap (Generic) 04/05/2019 Family History Medical History Relation Comments Heart Disease Father Diabetes Maternal Grandfather COPD Maternal Grandmother Arthritis Mother Relation Status Comments Father Maternal Grandfather Maternal Grandmother Mother Social History Tobacco Use Types Packs/Day Years Used Date Smoking Tobacco: Never Smokeless Tobacco: Never Tobacco Cessation:Counseling Given: Yes Alcohol Use Standard Drinks/Week Comments Not Currently 0 (1 standard drink = 0.6 oz pur e alcohol) occ PHQ-2 Answer Date Recorded Patient Health Questionnaire-2 Score 0 05/27/2024 Comments No Sex and Gender Information Value Date Recorded Sex Assigned at Female 05/27/2024 7:55 AM CDT Legal Sex Female 8:13 PM CDT Gender Identity Female 05/27/2024 7:55 AM CDT Sexual Orientation Not on file 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 Not on file Last Filed Vital Signs Vital Sign Reading Time Taken Comments Blood Pressure 116/64 05/27/2024 7:57 AM CDT Pulse 71 05/27/2024 7:57 AM CDT Temperature 36.4 C (97.5 F) 05/27/2024 7:57 AM CDT Respiratory Rate 16 05/27/2024 7:57 AM CDT Oxygen Saturation 98% 05/27/2024 7:57 AM CDT Inhaled Oxygen Concentration - - Weight 67.5 kg (148 lb 12.8 oz) 05/27/2024 7:57 AM CDT Height 162.6 cm (5' 4 ) 05/27/2024 7:57 AM CDT Body Mass Index 25.54 05/27/2024 7:57 AM CDT Plan of Treatment Health Maintenance Due Date Last Done Comments Hepatitis B Vaccines (1 of 3 - 19+ 3-dose series) 1984 Mammogram Screening 02/16/2025 02/17/2024, 11/26/2022, 10/11/2021, Additional history exists Annual Physical 05/27/2025 05/27/2024, 02/10/2023, 02/05/2022, Additional history exists COVID-19 Vaccine ( season) 2025 12/08/2020, 03/12/2020, 02/21/2020 Postponed from 11/02/2023 (Patient Refused) Zoster Vaccines (1 of 2) 05/27/2025 Pos tponed from 07/09/2015 (Going to Outside Clinic) Colorectal Cancer Screening Colonoscopy (10 Years) 02/04/2027 02/04/2017 DTaP, Tdap and Td Vaccines (2 - Td or Tdap) 04/05/2029 04/05/2019 Hepatitis C Completed 02/05/2022 PHQ-2 (Physician [place]) Completed 05/27/2024 Meningococcal B Vaccine Aged Out No l onger eligible based on patient's age to complete this topic Meningococcal Vaccine Aged Out No dina keshav eligible based on patient's age to complete this topic Pneumococcal Vaccine: Pediatrics (0 to 5 Years) and At-Risk Patients (6 to 49 Years) Aged Out No longer eligible based on patient's age to complete this topic RSV Immunizations Under 20 Months Aged Out No longer eligible based on patient's age to complete this topic Procedures Procedure Name Priority Date/Time Associated Diagnosis Comments MAMMOGRAM GENERIC (SCAN ORDER) 02/17/2024 COLONOSCOPY GENERIC (SCAN ORDER) 02/04/2017 from Last 3 Months or Most Recently Relevant to Health Maintenance Results * MAMMOGRAM GENERIC (SCAN ORDER) (02/17/2024) Anatomical Region Laterality Modality Other 02/17/2024 [facility] Scanned SCANNING Final Resu lt * COLONOSCOPY GENERIC (02/04/2017) 02/04/2017 Narrative 02/04/2017 Ordered by an unspecified provider. us Documents Scanned SCANNING Final Result from Last 3 Months or Most Recently Relevant to Health Maintenance Insurance [facility] [place] [id number] Care Teams Turf Manager Relationship Specialty Start Date End Date Diego Stacy DO [address] [place] [id number] PCP - General FAMILY PRACTICE 10/06/18
--- OUTSIDE RECORDS SUMMARY | 2024-06-17 07:30 | XMS_ITS | Clinical Summary ---
Author Organization [facility] Address [address] Means: Epic Prelude ADT [place] [address] Care Team Providers Care Spark Tester Name Role Phone Unavailable Primary Care Provider Unavailabl e Medications semaglutide (Ozempic) 0.25 mg or 0.5 mg(2 mg/1.5 mL) Pen Injector Inject 0.5mg subcutaneously once weekly, using rotating injection sites 4.5 mL 3 2 Active clobetasoL (TEMOVATE) 0.05 % Cream Apply topically 2 (two) times daily. 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 Gender Identity Not on file Sexual Orientation Not on file Plan of Treatment Health Maintenance Due Date Last Done Comments DTAP/TDAP/TD VACCINES (1 - Tdap) 1984 HEPATITIS B VACCINES (1 of 3 - 19+ 3-dose series) 10/1984 HPV/Cotest (21-29) 1986 PAP SMEAR 1986 CERVICAL CANCER SCREENING 07/09/1995 HPV/Cotest (30-65) 07/09/1995 PAP SMEAR 07/09/1995 BREAST CANCER SCREENING 2005 COLORECTAL SCREENING 2010 Colorectal Cancer Screening 2010 FIT-DNA Q 3 years 2010 FIT/FOBT Q 1 year 2010 Flex Sig/CT Colonography Q 5 years 2010 ZOSTER VACCINE (1 of 2) 07/09/2015 INFLUENZA VACCINE (#1) 2023 Insurance RX [employer] RX Member Subscriber Plan / Payer (Ef fective for All Dates) Name:JELENA DOMINGUEZ Relation to Subscriber:Self Name:Jelena Dominguez Payer ID:Not on file Type:RX Commercial Address: [place]
[2024-06-17 08:38] LABS: Alanine Aminotransferase 25 U/L (6-35); Albumin Level 4.6 g/dL (3.5-5.1); Alkaline Phosphatase 53 U/L (38-126); Anion Gap 8 mmol/L (4-12); Aspartate Amino Transferase 22 U/L (14-36); Bilirubin,Total 0.8 mg/dL (0.2-1.3); Blood Urea Nitrogen 17 mg/dL (7-17); Calcium 9.5 mg/dL (8.4-10.2); Carbon Dioxide 27 mmol/L (22-30); Chloride 102 mmol/L (98-107); Cholesterol 162 mg/dL (0-200); Estimated Glomerular Filt Rate > 60; Glucose 94 mg/dL (65-110); HDL Direct 46 mg/dL; Potassium 4.1 mmol/L (3.4-5.0); Sodium 137 mmol/L (137-145); Triglycerides 109 mg/dL (<150)
[2024-06-17 08:41] LABS: Basophils Percent Auto 0.1 % (0.2-1.2); Eosinophils Absolute Auto 0.1 K/mm3 (0-0.3); Eosinophils Percent Auto 1.1 % (0-4.4); Hematocrit 41.8 % (37.0-47.0); Hemoglobin 13.7 g/dL (12.0-15.0); Immature Granulocyte Absolute 0.01 K/mm3 (0.00-0.031); Immature Granulocyte Percent A 0.1 % (0-0.5); Lymphocytes Absolute Auto 2.01 K/mm3 (0.9-3.2); Lymphocytes Percent Auto 27.9 % (18.3-44.2); Mean Corpuscular HGB Conc 32.8 g/dl (32-36); Mean Corpuscular Hemoglobin 29.8 pg (26-34); Mean Corpuscular Volume 90.9 fl (80-100); Mean Platelet Volume 10.6 fl (7.4-10.4); Monocytes Absolute Auto 0.4 K/mm3 (0.1-0.6); Monocytes Percent Auto 5.8 % (2.6-8.5); Neutrophils Absolute Auto 4.7 K/mm3 (1.3-6.7); Platelet Count Result 239 k/mm3 (150-375); Red Cell Distribution Width 11.2 % (11.5-14.5); White Blood Count 7.2 K/mm3 (4.5-10.0)
[2024-06-17 08:43] LABS: Hemoglobin A1C 4.9 % (<5.7)
[2024-06-17 08:49] LABS: LDL Cholesterol Direct 82 mg/dL
[2024-06-17 10:01] LABS: Free T3 5.08 pg/mL (2.71-6.16); Free T4 Free Thyroxine 1.08 ng/dL (0.78-2.19); Vitamin D 25 Hydroxy 98.3 ng/mL
[2024-06-19 04:47] LABS: CRP, High Sensitivity 0.7 mg/L
[2024-06-21 07:13] LABS: Estrone 30 pg/mL
[2024-06-21 13:48] LABS: Homocysteine 5.9 umol/L (<10.4)
[2024-06-21 16:49] LABS: Testosterone Free 26.2 pg/mL (0.2-5.0)
[2024-06-23 03:18] LABS: IGFBP-1 9 ng/mL (5-34)
== END 2024-06-17 07:19 | disposition home or self-care (01) ==
PROVIDERS: PCP Student in an Organized Health Care Education/Training Program; Referring Provider Obstetrics & Gynecology; Visit Provider Specialist
DX: D51.9 Vitamin B12 deficiency anemia, unspecified (principal); E03.9 Hypothyroidism, unspecified; E34.9 Endocrine disorder, unspecified; E53.9 Vitamin B deficiency, unspecified; E55.9 Vitamin D deficiency, unspecified; E66.89 Other obesity not elsewhere classified; E72.11 Homocystinuria; E78.2 Mixed hyperlipidemia; E88.810 Metabolic syndrome; F43.9 Reaction to severe stress, unspecified; N95.1 Menopausal and female climacteric states; R53.83 Other fatigue; R68.82 Decreased libido; R94.5 Abnormal results of liver function studies; Z79.890 Hormone replacement therapy
CPT/HCPCS: 36415; 80053; 80061; 82306; 82533; 82607; 82670; 82679; 83036; 83090; 83525; 84402; 84439; 84481; 85025; 86141

== ENCOUNTER 2024-10-09 07:22 | Outpatient (CLI) | payer OTHER, SELFPAY ==
--- OUTSIDE RECORDS SUMMARY | 2024-10-09 07:27 | XMS_ITS | Encounter Summary ---
Author Organization [facility] Address [facility] [place] [address] Care Team Providers Care Body Shop Floorperson Name Role Phone Diego Stacy DO Primary Care Provider + Encounter Details Date Type Department Care Team (Late st Contact Info) Description 09/17/2024 [employer] Message Enc [facility] Family & Internal Medicine [facility] [address] [place] [address] Diego Stacy DO [address] [place], [place] [id number] Liza Orourke rash on face, neck and ears Social History Tobacco Use Types Packs/Day Years Used Date Smoking Tobacco: Never Smokeless Tobacco: Never Alcohol Use Standard Drinks/Week Comments Not Currently [...] Progress Notes * Diego Stacy DO - 09/17/2024 9:24 AM CDT Facial rash requires an appointment to evaluate, especially since I can see that there is proximityof the rash to her eye. Would have to recommend urgent care for formal evaluation. documented in this encounter Plan of Treatment Not on file documented as of this encounter Visit Diagnoses Not on filedocumented in this encounter Additional Health Concerns Assessment Noted Time PHQ-9 Depression Total Score: 0 02/02/20 21 7:27 AM GARNETTER documented as of this encounter Care Teams Body Shop Floorperson Relationship Specialty Start Date End Date Diego Stacy DO [address] [place] [address] PCP - General FAMILY PRACTICE 10/06/18 documented as of this encounter
--- OUTSIDE RECORDS SUMMARY | 2024-10-09 07:27 | XMS_ITS | Clinical Summary ---
Author Organization [facility] Address [address] 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 Gender Identity Not on file Sexual Orientation Not on file Plan of Treatment Health Maintenance Due Date Last Done Comments DTAP/TDAP/TD VACCINES (1 - Tdap) 1984 HEPATITIS B VACCINES (1 of 3 - 19+ 3-dose series) 10/1984 HPV/Cotest (21-29) 1986 CERVICAL CANCER SCREENING 07/09/1995 HPV/Cotest (30-65) 07/09/1995 PAP SMEAR 07/09/1995 BREAST CANCER SCREENING 2005 COLORECTAL SCREENING 2010 Colorectal Cancer Screening 2010 FIT-DNA Q 3 years 2010 FIT/FOBT Q 1 year 2010 Flex Sig/CT Colonography Q 5 years 2010 ZOSTER VACCINE (1 of 2) 07/09/2015 INFLUENZA VACCINE (#1) 2024 Insurance RX [employer] RX Member Subscriber Plan / Payer (Ef fective for All Dates) Name:JELENA DOMINGUEZ Relation to Subscriber:Self Name:Jelena Dominguez Payer ID:Not on file Type:RX Commercial Address: [place]
--- OUTSIDE RECORDS SUMMARY | 2024-10-09 07:27 | XMS_ITS | Clinical Summary ---
Author Organization [facility] Address [address] [place] [address] Care Team Providers Care Supervisor Public Message Service Name Role Phone Diego Stacy Primary Care Provider + Allergies Active Allergy Reactions Criticality Noted Date Comments Epinephrine Tachycardia 10/06/2018 Medications liothyronine 5 MCG Tab Take 3 tablets (15 mcg total) by mouth daily. Take 2 tabs daily 4 8 Active vitamin D3, cholecalciferol, 5000 UNITS capsule Take 1 tablet by mouth daily. Active [place]-3 Fatty Acids (OMEGA-3 FISH OIL) 1200 MG Cap Take 2 capsules by mouth daily. Active aspirin EC (ECOTRIN) 81 MG tablet Take 1 tablet (81 mg total) by mouth daily. Active testosterone 50 MG pelletIndications :every 4 months 390 mg by Implant route once. Indications: every 4 months Active spironolactone 50 MG tablet 0 Active ARMOUR THYROID 180 MG Tab Take 1 tablet by mouth daily. 0 Active Biotin 5000 MCG Cap Take 1 Can by mouth daily. Active Anastrozole Powder 10 mg every 4 (four) months. Active estradiol 0.1 MG/GM vaginal cream 2 Active clobetasol (TEMOVATE) 0.05 % creamIndications: Rosacea Apply 1 Pump topically 2 (two) times daily. To back, stomach, legs and arms 60 g 1 2 Active estradiol (ESTRACE) 0.1 MG/GM vaginal cream Place 1 g vaginally. Twice a week 2 Active polyethylene glycol (GLYCOLAX) 17 GM/SCOOP powderIndications :Slow transit constipation USING MEASURING CAP MIX 17GM IN 240 ML WATER AND DRINK DAILY 510 g 5 4 Active valACYclovir (VALTREX) 1 g tabletIndications :H/O cold sores Take 1 tablet (1,000 mg total) by mouth 2 (two) times daily as needed. 21 tablet 5 Active metFORMIN XR (GLUCOPHAGE-XR) 750 MG 24 hr tablet Take 1 tablet (750 mg total) by mouth daily with breakfast. 4 Active pseudoephedrine-g uaiFENesin ER (EQ MUCUS-D) 60-600 MG TABLET SR 12 HR 12 hr tabletIndications :Congestion of nasal sinus TAKE 1 TABLET BY MOUTH TWICE DAILY NEEDED FOR CONGESTION 108 tablet 5 Active Active Problems Problem Noted Date Diagnosed Date Rosacea 10/06/2018 Vitamin D deficiency 10/06/2018 Low serum testosterone level in female 9 H/O cold sores 10/06/2018 Insulin resistance 10/06/2018 Hypothyroidism 09/29/2009 Resolved Problems Problem Noted Date Diagnosed Date Resolved Date Uterovaginal prolapse 09/05/20202020 Overview (02/01/2021): Added automatically from request for surgery [id number] Cough with sputum 12/10/2012 10/06/2018 Depression 09/29/2009 10/06/2018 Encounters Date Type Department Care Team Description 09/17/2024 MyChart Message Enc [facility] Family & Internal Medicine [address] [phone] Diego Stacy DO [place] Cree[place] rash on face, neck and ears from Last 3 Months Immunizations Immunization Administration [...] 7:57 AM CDT Height 162.6 cm (5' 4) 05/27/2024 7:57 AM CDT Body Mass Index 25.54 05/27/2024 7:57 AM CDT Plan of Treatment Health Maintenance Due Date Last Done Comments Pneumococcal Vaccine: 50+ Years (1 of 1 - PCV) 07/09/2015 Mammogram Screening 02/16/2025 02/17/2024, 11/26/2022, 10/11/2021, Additional history exists Annual Physical 05/27/2025 05/27/2024, 10/2023, 02/05/2022, Additional history exists COVID-19 Vaccine ( season) 2025 12/08/2020, 03/12/2020, 02/21/2020 Postponed from 11/02/2023 (Patient Refused) Zoster Vaccines (1 of 2) 05/27/2025 Pos tponed from 07/09/2015 (Going to Outside Clinic) Colorectal Cancer Screening Colonoscopy (10 Years) 02/04/2027 02/04/2017 DTaP, Tdap and Td Vaccines (2 - Td or Tdap) 04/05/2029 04/05/2019 Hepatitis C Completed 02/05/2022 PHQ-2 (Physician [place]) Completed 05/27/2024 Meningococcal B Vaccine Aged Out [...] Most Recently Relevant to Health Maintenance Insurance R Care Teams Supervisor Public Message Service Relationship Specialty Start Date End Date Diego Stacy DO [address] [place] [address] PCP - General FAMILY PRACTICE 10/06/18
--- OUTSIDE RECORDS SUMMARY | 2024-10-09 07:27 | XMS_ITS | Clinical Summary ---
Author Organization [facility] [employer] Address [address] [place] [address] Care Team Providers Care Metal Drill Operator Name Role Phone Unavailable Primary Care Provider Unavailabl e Source Comments [facility] [employer],non-owned Affiliates and Associated Physician Practices is amultiple site organization consisting of ambulatory clinics and hospital sitesin [place], [place], [place] and [place]. This disclosure is being madepursuant to the Care Everywhere program and may not contain all information available regarding this patient. Last updated 17.[facility] [employer] Allergies No known active allergies Medications * Be aware that medications may not be up to date on this document. Alwaysverify current medications with the patient. etonogestrel-et hinyl estradiol (NUVARING) 0.12-0.015 MG/24HR vaginal ring Insert 1 Device into the vagina once. Remove ring after 3 weeks, followed by 1 week-rest, then insert new ring Active beclomethasone (BECONASE AQ) 42 MCG/SPRAY [place] 1 [place] into the nose 2 times daily. 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
--- OUTSIDE RECORDS SUMMARY | 2024-10-09 07:27 | XMS_ITS | Clinical Summary ---
Author Organization [place] [id number] [facility] Address [address] [place] [address] Care Team Providers Care Testing Projects Administrator Name Role Phone Diego Stacy DO Primary Care Provide r Filippo Alcaraz DO Unavailable [phone] Allergies Active Allergy Reactions Criticality Noted Date [...] Active testosterone, bulk, powder 0 3 Active Weed Thyroid 30 mg tablet 3 Active estradioL (ESTRACE) 0.01 % (0.1 mg/gram) vaginal cream INSERT 1 GRAM VAGINALLY TWICE WEEKLY AT BEDTIME 42.5 g 3 4 Active Active Problems Problem Noted Date Diagnosed Date Uterovaginal prolapse 09/05/2020 Overview (09/05/2020): Added automatically from request for surgery [id number] Vitamin D deficiency 10/06/2018 Rosacea 10/06/2018 Insulin [...] on file 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 Gender Identity Not on file Sexual Orientation [...] 1:09 PM CDT Height 162.6 cm (5' 4) 12/18/2023 1:09 PM CDT Body Mass Index 25.4 12/18/2023 1:09 PM CDT Plan of Treatment Health Maintenance Due Date Last Done Comments Colon Cancer Screening-Colonoscopy 1965 Depression Screening 1965 Hepatitis C Screening 1965 Hepatitis B Screening 07/09/1983 Pneumococcal vaccine <65 (1 of 2 - PCV) 1984 Zoster Vaccine (1 of 2) 1984 Covid-19 Vaccine (3 - Pfizer risk series) 04/09/2020 03/12/2020, 02/21/2020 Breast Cancer Screening-Mammogram 11/27/2023 023 Regular Well Visit/Exam 18-64 09/02/2024, 08/29/2022, 08/27/2021, Additional history exists Influenza Vaccine (#1) 2024 , 12/12/2021, 12/12/2020, Additional history exists DTaP/Tdap/Td Vaccine (2 - Td or Tdap) 04/05/2029 04/05/2019 Cervical Cancer Screening Discontinued 2023, 08/29/2022, 08/27/2021, Additional history exists Medical Devices Implanted Type Area Director Security Management Device Identifier Shelf Expiration Date Model / Serial / Lot [employer] [id number] Upsylon 35.4cm Elongation Profile Lightweight Large Pore Low - [id number] Implanted:Qty: 1 on 01/23/2021 by Amarilis De Santiago MD at [facility] Mesh N/A: Vagina [employer] [id number] 11/30/2022 [id number] / / [id number] [employer] [facility] [id number] Tvt Prolene 45x1.1cm Tape Mesh Transvaginal Blue - [id number] Implanted:Qty: 1 on 01/23/2021 by Amarilis De Santiago MD at [facility] Mesh N/A: Pelvis [employer] [id number] 08/31/2023 [id number] / / [id number] Procedures Procedure Name Priority Date/Time Associated Diagnosis [...] 16,18/45 (09/03/2023 11:42 AM CDT) CLINICAL INFORMATION: [facility] Comment:None given LMP [facility] Comment:NONE GIVEN Previous Pap [facility] Comment:NONE GIVEN Prev. Bx [facility] Comment:NONE GIVEN SOURCE: [facility] Comment:None given Pap, specimen adequacy [facility] Comment: Satisfactory for evaluation. Endocervical/transformation zone component present. HPV interp [facility] Comment: Cytology Results: Negative for intraepithelial lesion or malignancy. COMMENTS [facility] Comment: This Pap test has been evaluated with computer assisted technology. Shank Stitcher [facility] Comment: ZEKE GRANDE(ASCP) CT Screening location: [place] [address] [place] [address] Comment [facility] Comment: EXPLANATORY NOTE: The Pap is [...] High Risk E6/E7 Not Detected Not Detected [facility] Comment: Methodology: Central Office Operator-Mediated Amplification This assay detects E6/E7 viral messenger RNA (mRNA) from 14 high-risk HPV types (16,18,31,33,35,39,45,51,52,56,58,59,66,68). Cervical sources are required for HPV testing. If a vaginal source from a patient who has had a total hysterectomy with removal of cervix was submitted, please contact the testing laboratory for alternative testing options. For additional information, please refer to http://education.Redbiotec/faq/ULO324i4 (This link if provided for information/ educational purposes only.) Swab 09/03/2023 11:4 2 AM CDT 09/03/2023 9:22 PM CDT Filippo Alcaraz DO LAB CYTOLOGY ORDERABLES Final Result [facility] [address] [place] [id number] [facility] [address] [place] [address] * Screening Mammogram Bilateral W Atif (11/26/2022 [...] Most Recently Relevant to Health Maintenance Insurance [facility] [employer] Address: [facility] [id number] [place] [address] [facility] [employer] Address: [address] [place] [address] [facility] Advance Directives For more information, please contact: [phone] * Full Code (Latest Code Status on File) Date Activated Date Inactivated Comments 01/23/2021 4:36 PM 01/24/2021 1:47 PM Care Teams Testing Projects Administrator Relationship Specialty Start Date End Date Diego Stacy DO [address] [place] [address] PCP - General Family Medicine 11/29/19 [place] [address] [place] [address] Consulting Physician Obstetrics and Gynecology 08/16/20
--- OUTSIDE RECORDS SUMMARY | 2024-10-09 07:27 | XMS_ITS | Encounter Summary ---
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
[2024-10-09 09:07] LABS: Free T3 3.83 pg/mL (2.71-6.16); Free T4 Free Thyroxine 0.68 ng/dL (0.78-2.19)
== END 2024-10-09 07:23 | disposition home or self-care (01) ==
LOC: ANHLAB 07:24
PROVIDERS: PCP Student in an Organized Health Care Education/Training Program; Visit Provider Specialist
DX: E34.9 Endocrine disorder, unspecified (principal); E03.9 Hypothyroidism, unspecified; E55.9 Vitamin D deficiency, unspecified; D51.9 Vitamin B12 deficiency anemia, unspecified; E72.11 Homocystinuria; E53.9 Vitamin B deficiency, unspecified; R94.5 Abnormal results of liver function studies; E78.2 Mixed hyperlipidemia; R73.03 Prediabetes; R68.82 Decreased libido; R53.83 Other fatigue; R63.5 Abnormal weight gain; F43.9 Reaction to severe stress, unspecified; Z79.890 Hormone replacement therapy
CPT/HCPCS: 36415; 84439; 84481

== ENCOUNTER 2024-12-10 06:56 | Outpatient (CLI) | payer OTHER, SELFPAY ==
--- OUTSIDE RECORDS SUMMARY | 2024-12-10 07:01 | XMS_ITS | Clinical Summary ---
Author Organization [facility] Address [address] [place] [address] Care Team Providers Care Palliative Care Specialist Name Role Phone Diego Stacy Primary Care Provider + Allergies Active Allergy Reactions Criticality Noted Date Comments Epinephrine Tachycardia 10/06/2018 Medications liothyronine 5 MCG Tab Take 3 tablets (15 mcg total) by mouth daily. Take 2 tabs daily 4 8 Active vitamin D3, cholecalciferol, 5000 UNITS capsule Take 1 tablet by mouth daily. Active Girard-3 Fatty Acids (OMEGA-3 FISH OIL) 1200 MG [...] (02/01/2021): Added automatically from request for surgery [id number] Cough with sputum 12/10/2012 10/06/2018 Depression 09/29/2009 10/06/2018 Encounters Date Type Department Care Team Description 10/09/2024 Scan [facility] Scanned, Doc [facility] Lab (SCAN) 09/17/2024 MyChart Message [facility] [address] [address] Diego Stacy, DO De Jesus Creeper rash on face, neck and ears [...] Years (1 of 1 - PCV) 07/09/2015 COVID-19 Vaccine ( season) 2024 12/08/2020, 03/12/2020, 02/21/2020 Influenza Adult (#1) 2024 12/17/2023, 12/02/2023, 12/13/2022, Additional history exists Mammogram Screening 02/16/2025 02/17/2024, 11/26/2022, 10/11/2021, Additional history exists Annual Physical 05/27/2025 05/27/2024, 02/0 10/2023, 02/05/2022, Additional history exists Zoster Vaccines (1 of 2) 05/27/2025 Pos tponed from 07/09/2015 (Going to Outside Clinic) Colorectal Cancer Screening Colonoscopy (10 Years) 02/04/2027 02/04/2017 DTaP, Tdap and Td Vaccines (2 - Td or Tdap) 04/05/2029 04/05/2019 Hepatitis C Completed 02/05/2022 PHQ-2 (Physician Marcella) Completed 05/27/2024 Meningococcal B Vaccine Aged Out No l onger eligible based on patient's age to complete this topic Meningococcal Vaccine Aged Out No dina keshav eligible based on patient's age to complete this topic RSV Immunizations Under 20 Months Aged Out No longer eligible based on patient's age to complete this topic Procedures Procedure Name Priority Date/Time Associated Diagnosis Comments OUTSIDE LAB (SCAN ORDER) 10/09/2024 OUTSIDE LAB (SCAN ORDER) 10/09/2024 OUTSIDE LAB (SCAN ORDER) 10/09/2024 MAMMOGRAM GENERIC (SCAN ORDER) 02/17/2024 COLONOSCOPY GENERIC (SCAN ORDER) 02/04/2017 from Last 3 Months or Most Recently Relevant to Health Maintenance Results * OUTSIDE LAB (SCAN ORDER) (10/09/2024) Only the most recent of3 resultswithin the time period is included. 10/09/2024 us Doc [facility] Scanned SCANNING Final Resu lt * MAMMOGRAM GENERIC (SCAN ORDER) (02/17/2024) Anatomical Region Laterality Modality Other 02/17/2024 us [facility] Scanned SCANNING Final Resu lt * COLONOSCOPY GENERIC (02/04/2017) 02/04/2017 Narrative 02/04/2017 Ordered by an unspecified provider. us Documents Scanned SCANNING Final Result from Last 3 Months or Most Recently Relevant to Health Maintenance Insurance [facility] Care Teams Palliative Care Specialist Relationship Specialty Start Date End Date Diego Stacy DO [address] [place] [address] PCP - General FAMILY PRACTICE 10/06/18
--- OUTSIDE RECORDS SUMMARY | 2024-12-10 07:01 | XMS_ITS | Encounter Summary ---
Author Organization [facility] Address Critical access hospital[address] [place] [address] Care Team Providers Care Buck Presser Name Role Phone Diego Stacy DO Primary Care Provider + Encounter Details Date Type Department Care Team (Late st Contact Info) Description 09/17/2024 MyChart Message Enc [facility] Family & Internal Medicine [facility] [address] [place] [address] Diego Stacy DO [address] [place], [place] [id number] Liza Orourke rash on face, neck and [...] Total Score: 0 02/02/20 21 7:27 AM PRACTICE LEAD documented as of this encounter Care Teams Buck Presser Relationship Specialty Start Date End Date Diego Stacy DO [address] [place] [address] PCP - General FAMILY PRACTICE 10/06/18 documented as of this encounter
--- OUTSIDE RECORDS SUMMARY | 2024-12-10 07:01 | XMS_ITS | Clinical Summary ---
Author Organization [facility] Address [address] [facility] [address] Care Team Providers Care Mental Hygiene Consultant Name Role Phone Unavailable Primary Care Provider Unavailabl e Source Comments [facility],non-owned Affiliates and Associated Physician Practices is amultiple site organization consisting of ambulatory clinics and hospital sitesin [place], [place], [place] and [place]. This disclosure is being madepursuant to the Care Everywhere program and may not contain all information available regarding this patient. Last updated 17.[facility] Allergies No known active allergies Medications * Be aware that medications may not be up to date on this document. Alwaysverify current medications with the patient. etonogestrel-et hinyl estradiol (NUVARING) 0.12-0.015 MG/24HR vaginal ring Insert 1 Device into the vagina once. Remove ring after 3 weeks, followed by 1 week-rest, then insert new ring Active beclomethasone (BECONASE AQ) 42 MCG/SPRAY [place] 1 [place] into the nose 2 times daily. 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
--- OUTSIDE RECORDS SUMMARY | 2024-12-10 07:01 | XMS_ITS | Clinical Summary ---
Author Organization [place] [id number] Address [address] [place] [address] Care Team Providers Care Biotech Production Specialist Name Role Phone Diego Stacy DO Primary Care Provide r Syeda Alcaraz DO Unavailable [phone] Allergies Active Allergy Reactions Criticality Noted Date [...] by mouth nightly Throne Basic Nutrients Active ANASTROZOLE, BULK, MISCIndications :prevention 10 mg every 4 (four) months pellets Active metFORMIN XR (GLUCOPHAGE XR) 750 mg 24 hr tablet TAKE 2 TABLETS BY MOUTH ONCE DAILY WITH A MEAL. 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 9 Influenza A 03/05/2017 Chronic sinusitis 12/15/2013 Edema 09/21/2012 Hypothyroidism 09/29/2009 Depression 09/29/2009 HLD (hyperlipidemia) 09/29/2009 Rhinitis 09/29/2009 Encounters Date Type Department Care Team Description 10/21/2024 11:15 AM CDT Office Visit [facility] [address] [place] [address] Syeda Alcaraz DO Encounter for gynecological examination without abnormal finding (Primary Dx) from Last 3 Months Immunizations Immunization Administration Dates Next Due Influenza, Quadrivalent, Split, Intramuscular Influenza, Unspecified 12/24/2016 Pfizer SARS-CoV-2 Monovalent Vaccination (12+ Yrs) PURPLE 03/12/2020,02/21/2020 Tdap 04/05/2019 Surgical History Surgery Date Site/Laterality Comments SINUS SURGERY Bilateral 1992, 2013 HYSTERECTOMY 01/23/2021 supracervical hyst ABDOMINAL SACROCOLPOPEXY 01/23/2021 BLADDER SUSPENSION 01/23/2021 Medical History Medical History Date Comments Hx Other Medical thyroid disease ; Comments: NORBERTO 01/14/2014 - Hx Other Medical sinus surgery; [...] on file 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 Gender Identity Not on file Sexual Orientation [...] Sign Reading Time Taken Comments Blood Pressure 132/80 10/21/2024 11:13 AM CDT Pulse 72 10/09/2022 10:30 AM CDT Temperature 36.6 C (97.9 F) 10/09/2022 10:30 AM CDT Respiratory Rate 18 10/09/2022 10:30 AM CDT Oxygen Saturation 99% 10/09/2022 10:30 AM CDT Inhaled Oxygen Concentration - - Weight 71.7 kg (158 lb) 10/21/2024 11:13 AM CDT Height 162.6 cm (5' 4.02) 10/21/2024 11:13 AM C DT Body Mass Index 27.11 10/21/2024 11:13 AM CDT Plan of Treatment Health Maintenance Due Date Last Done Comments Colon Cancer Screening-Colonoscopy 1965 Depression Screening 1965 Hepatitis C Screening 1965 Hepatitis B Screening 07/09/1983 Pneumococcal vaccine <65 (1 of 2 - PCV) 1984 Zoster Vaccine (1 of 2) 1984 Covid-19 Vaccine (3 - Pfizer risk series) 04/09/2020 03/12/2020, 02/21/2020 Breast Cancer Screening-Mammogram 11/27/2023 023 Influenza Vaccine (#1) 2024 , 12/02/2023, 12/13/2022, Additional history exists Regular Well Visit/Exam 18-64 10/21/2025, 09/03/2023, 08/29/2022, Additional history exists DTaP/Tdap/Td Vaccine (2 - Td or Tdap) 04/05/2029 04/05/2019 Cervical Cancer Screening Discontinued 2024, 09/03/2023, 08/29/2022, Additional history exists Medical Devices Implanted Type Area Public Health Analyst Device Identifier Shelf Expiration Date Model / Serial / Lot [place] [employer] Ruddy [id number] Upsylon 35.4cm Elongation Profile Lightweight Large Pore Low - [id number] Implanted:Qty: 1 on 01/23/2021 by Amarilis De Santiago MD at [facility] Mesh N/A: Vagina [employer] [id number] 11/30/2022 [id number] / / [id number] Titi & Wonder[employer] [facility] [id number] Tvt Prolene 45x1.1cm Tape Mesh Transvaginal Blue - [id number] Implanted:Qty: 1 on 01/23/2021 by Amarilis De Santiago MD at [facility] Mesh N/A: Pelvis [employer] [facility] [id number] 08/31/2023 [id number] / / [id number] Procedures Procedure Name Priority Date/Time Associated Diagnosis Comments THINPREP IMAGING PAP AND HPV MRNA E6/E7 REFLEX HPV 16,18/45 Routine 10/21/2024 11:43 AM CDT Encounter for gynecological examination without abnormal finding SCREENING MAMMOGRAM BILATERAL W ATIF Schedule Routine, Read Routine (OP Routine) 11/26/2022 3:06 PM CDT Routine gynecological examination Encounter for screening mammogram for malignant neoplasm of breast from Last 3 Months or Most Recently Relevant to Health Maintenance Results * ThinPrep(R) Imaging Pap and HPV mRNA E6/E7 Reflex HPV 16,18/45 (10/21/2024 11:43 AM CDT) CLINICAL INFORMATION: [facility] Comment:None given LMP [facility] Comment:NONE GIVEN Previous Pap [facility] Comment:NONE GIVEN Prev. Bx [facility] Comment:NONE GIVEN SOURCE: [facility] Comment:None given Pap, specimen adequacy [facility] Comment: Satisfactory for evaluation. Endocervical/transformation zone component present. Age and/or menstrual status not provided HPV interp [facility] Comment: Cytology Results: Negative for intraepithelial lesion or malignancy. COMMENTS [facility] Comment: This Pap test has been evaluated with the ThinPrep(R) Imaging System. Blade Worker [facility] Comment: MEF, CT(ASCP) CT Screening Location: [facility], Critical [place] [address] CLIA: [id number] Slide preparation performed at: [facility], [address] [place] [address], [address] CLIA: [id number] Comment [facility] Comment: EXPLANATORY NOTE: The Pap is [...] High Risk E6/E7 Not Detected Not Detected [facility] Comment: Methodology: Business Continuity Analyst-Mediated Amplification This assay detects E6/E7 viral messenger RNA (mRNA) from 14 high-risk HPV types (16,18,31,33,35,39,45,51,52,56,58,59,66,68). Cervical sources are required for HPV testing. If a vaginal source from a patient who has had a total hysterectomy with removal of cervix was submitted, please contact the testing laboratory for alternative testing options. For additional information, please refer to http://education.Accessory Addict Society/faq/GEU399b1 (This link if provided for information/ educational purposes only.) Swab 10/21/2024 11:4 3 AM CDT 10/22/2024 6:18 PM CDT Narrative [facility] - 10/25/2024 6:40 PM CDT FASTING: UNKNOWN us Syeda Alcaraz DO LAB CYTOLOGY ORDERABLES Final Result Performing Organization Address City/[facility]/ZIP Co de Phone Number [facility] [address] [place] [address] [address] * Screening Mammogram Bilateral W Atif (11/26/2022 [...] suspicious finding in either breast on mammogram. Syeda Alcaraz DO IMG MAMMO PROCEDURES Fi nal Result from Last 3 Months or Most Recently Relevant to Health Maintenance Insurance [facility] [employer] Address: [facility] [address] [place] [address] [facility] [employer] Address: [facility] [address] [place] [address] [facility] Advance Directives For more information, please contact: [phone] * Full Code (Latest Code Status on File) Date Activated Date Inactivated Comments 01/23/2021 4:36 PM 01/24/2021 1:47 PM Care Teams Biotech Production Specialist Relationship Specialty Start Date End Date Diego Stacy DO [address] [place] [address] PCP - General Family Medicine 11/29/19 [place] [address] [place] [address] Consulting Physician Obstetrics and Gynecology 08/16/20
--- OUTSIDE RECORDS SUMMARY | 2024-12-10 07:01 | XMS_ITS | Encounter Summary ---
Author Organization [facility] Address [address] [place] [address] Care Team Providers Care Supervisor Treating And Pumping Name Role Phone Diego Stacy DO Primary Care Provider + Encounter Details Date Type Department Care Team (Late st Contact Info) Description 09/25/2021 TopDown Conservationhart Message Enc [facility] Group Family & Internal Medicine [facility] [address] [place] [address] Diego Stacy DO [address] [place], [place] [phone] clobetasol cream refill Social History Tobacco Use [...] Total Score: 0 02/02/20 21 7:27 AM PATIENT RELATIONS LIAISON documented as of this encounter Care Teams Supervisor Treating And Pumping Relationship Specialty Start Date End Date Diego Stacy DO [address] [place] [address] PCP - General FAMILY PRACTICE 10/06/18 documented as of this encounter
[2024-12-10 08:50] LABS: Free T3 4.92 pg/mL (2.71-6.16); Free T4 Free Thyroxine 0.94 ng/dL (0.78-2.19)
== END 2024-12-10 06:57 | disposition home or self-care (01) ==
LOC: ANHLAB 06:58
PROVIDERS: PCP Student in an Organized Health Care Education/Training Program; Visit Provider Specialist
DX: N95.1 Menopausal and female climacteric states (principal); E34.9 Endocrine disorder, unspecified; Z79.890 Hormone replacement therapy; E03.9 Hypothyroidism, unspecified; E88.810 Metabolic syndrome; E55.9 Vitamin D deficiency, unspecified; D51.9 Vitamin B12 deficiency anemia, unspecified; E72.11 Homocystinuria; E53.9 Vitamin B deficiency, unspecified; R94.5 Abnormal results of liver function studies; E78.2 Mixed hyperlipidemia; R68.82 Decreased libido; R53.83 Other fatigue; R63.5 Abnormal weight gain; F43.9 Reaction to severe stress, unspecified
CPT/HCPCS: 36415; 84439; 84481

== ENCOUNTER 2025-02-18 07:47 | Outpatient (CLI) | payer OTHER, SELFPAY ==
--- NOTE | ~2025-02-18 | MM_ITS ---
EXAMINATION: MM screening kenyetta BI w chip HISTORY: Screening TECHNIQUE: Craniocaudal and mediolateral oblique 3-D tomosynthesis images were obtained and synthetic 2-D images were generated. CAD analysis was submitted and interpreted. COMPARISON: Comparison to multiple prior studies sequentially, with oldest reviewed study dated 05/22/2017. BREAST PARENCHYMAL COMPOSITION: Not dense: There are scattered areas of fibroglandular density. FINDINGS: There is no evidence of suspicious mass, calcification, or architectural distortion to suggest malignancy in either breast. There has been no suspicious interval change. IMPRESSION: 1. No mammographic evidence of malignancy. 2. Recommend routine screening mammography in one year. BI-RADS Category 1: Negative Reviewed, dictated and finalized at location O. LANE TECHNICIAN
--- OUTSIDE RECORDS SUMMARY | 2025-02-18 07:52 | XMS_ITS | Clinical Summary ---
Author Organization [facility] Address [address] 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
--- OUTSIDE RECORDS SUMMARY | 2025-02-18 07:52 | XMS_ITS | Encounter Summary ---
Author Organization [facility] Address [facility] [place] [address] Care Team Providers Care Library Paraprofessional Name Role Phone Diego Stacy DO Primary Care Provider + Encounter Details Date Type Department Care Team (Late st Contact Info) Description 09/17/2024 MyChart Message Enc [facility] Medical Group Family & Internal Medicine [facility] [address] [place] [address] Diego Stacy DO [address] [place], [place] [phone] Liza Orourke rash on face, neck and [...] Total Score: 0 02/02/20 21 7:27 AM 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
--- OUTSIDE RECORDS SUMMARY | 2025-02-18 07:52 | XMS_ITS | Clinical Summary ---
Author Organization [place] [address] Address [address] [place] [address] Care Team Providers Care Sub Acute Care Nurse Name Role Phone Diego Stacy DO Primary Care Provide r Syeda Alcaraz DO Unavailable [phone] Allergies Active Allergy Reactions Criticality Noted Date [...] Active testosterone, bulk, powder 0 3 Active [place] Thyroid 30 mg tablet 3 Active estradioL (ESTRACE) 0.01 % (0.1 mg/gram) vaginal cream INSERT 1 GRAM VAGINALLY TWICE WEEKLY AT BEDTIME 42.5 g 3 4 Active Active Problems Problem Noted Date Diagnosed Date Uterovaginal prolapse 09/05/2020 Overview (09/05/2020): Added automatically from request for surgery [id number] Vitamin D deficiency 10/06/2018 Rosacea 10/06/2018 Insulin [...] on file 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 Gender Identity Not on file Sexual Orientation [...] history exists Medical Devices Implanted Type Area Radio Program Director Device Identifier Shelf Expiration Date Model / Serial / Lot [place] [employer] Ruddy [id number] Upsylon 35.4cm Elongation Profile Lightweight Large Pore Low - [id number] Implanted:Qty: 1 on 01/23/2021 by Amarilis De Santiago MD at [facility] Mesh N/A: Vagina [employer] [id number] 11/30/2022 [id number] / / [id number] Titi & Titi [facility] [id number] Tvt Prolene 45x1.1cm Tape Mesh Transvaginal Blue - [id number] Implanted:Qty: 1 on 01/23/2021 by Amarilis De Santiago MD at [facility] Mesh N/A: Pelvis [employer] [facility] [id number] 08/31/2023 [id number] / / [id number] Procedures Procedure Name Priority Date/Time Associated Diagnosis [...] 16,18/45 (10/21/2024 11:43 AM CDT) CLINICAL INFORMATION: [facility] Comment:None given LMP [facility] Comment:NONE GIVEN Previous Pap [facility] Comment:NONE GIVEN Prev. Bx [facility] Comment:NONE GIVEN SOURCE: [facility] Comment:None given Pap, specimen adequacy [facility] Comment: Satisfactory for evaluation. Endocervical/transformation zone component present. Age and/or menstrual status not provided HPV interp [facility] Comment: Cytology Results: Negative for intraepithelial lesion or malignancy. COMMENTS [facility] Comment: This Pap test has been evaluated with the ThinPrep(R) Imaging System. Jewel Bearing [place] [facility] Comment: MEF, CT(ASCP) CT Screening Location: [facility], [facility] [place] [address] CLIA: [id number] Slide preparation performed at: [facility], [address] [place] [address], [address] CLIA: [id number] Comment [facility] Comment: EXPLANATORY NOTE: The Pap is [...] High Risk E6/E7 Not Detected Not Detected [facility] Comment: Methodology: Right Of Way Manager-Mediated Amplification This assay detects E6/E7 viral messenger RNA (mRNA) from 14 high-risk HPV types (16,18,31,33,35,39,45,51,52,56,58,59,66,68). Cervical sources are required for HPV testing. If a vaginal source from a patient who has had a total hysterectomy with removal of cervix was submitted, please contact the testing laboratory for alternative testing options. For additional information, please refer to http://education.NightOwl.Recensus/faq/MLA647d2 (This link if provided for information/ educational purposes only.) Swab 10/21/2024 11:4 3 AM CDT 10/22/2024 6:18 PM CDT Narrative [facility] - 10/25/2024 6:40 PM CDT FASTING: UNKNOWN Syeda Alcaraz DO LAB CYTOLOGY ORDERABLES Final Result [facility] [address] [place] [address] [address] * Screening Mammogram Bilateral W Atif (11/26/2022 [...] Recently Relevant to Health Maintenance Insurance [employer] Address: [address] [place] [address] [facility] Address: [facility] [id number] [place] [address] [facility] HMO/PPO Address: [address] [address] [place] [address] Advance Directives For more information, please contact: [phone] * Full Code (Latest Code Status on File) Date Activated Date Inactivated Comments 01/23/2021 4:36 PM 01/24/2021 1:47 PM Care Teams Sub Acute Care Nurse Relationship Specialty Start Date End Date Diego Stacy DO [address] [place] [address] PCP - General Family Medicine 11/29/19 [place] [address] [place] [address] Consulting Physician Obstetrics and Gynecology 08/16/20
--- OUTSIDE RECORDS SUMMARY | 2025-02-18 07:52 | XMS_ITS | Clinical Summary ---
Author Organization [facility] Address [address] [place] [address] Care Team Providers Care Official Greeter Name Role Phone Diego Stacy Primary Care Provider + Allergies Active Allergy Reactions Criticality Noted Date Comments Epinephrine Tachycardia 10/06/2018 Medications liothyronine 5 MCG Tab Take 3 tablets (15 mcg total) by mouth daily. Take 2 tabs daily 4 8 Active vitamin D3, cholecalciferol, 5000 UNITS capsule Take 1 tablet by mouth daily. Active [place]-3 Fatty Acids (OMEGA-3 FISH OIL) 1200 MG [...] DRINK DAILY 510 g 5 4 Active metFORMIN XR (GLUCOPHAGE-XR) 750 MG 24 hr tablet Take 1 tablet (750 mg total) by mouth daily with breakfast. 4 Active pseudoephedrine- guaiFENesin ER (EQ MUCUS-D) 60-600 MG TABLET SR 12 HR 12 hr tabletIndication s:Congestion of nasal sinus TAKE 1 TABLET BY MOUTH TWICE DAILY NEEDED FOR CONGESTION 108 tablet 5 Active valACYclovir (VALTREX) 1 g tabletIndication s:H/O cold sores Take 1 tablet (1,000 mg total) by mouth 2 (two) times daily as needed. 21 tablet 5 Active valACYclovir (VALTREX) 1 g tabletIndication s:H/O cold sores Take 1 tablet (1,000 mg total) by mouth 2 (two) times daily as needed. 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 9 H/O cold sores 10/06/2018 Insulin resistance 10/06/2018 Hypothyroidism 09/29/2009 Resolved Problems Problem Noted Date Diagnosed Date Resolved Date Uterovaginal prolapse 09/05/20202020 Overview (02/01/2021): Added automatically from request for surgery [id number] Cough with sputum 12/10/2012 10/06/2018 Depression 09/29/2009 10/06/2018 Encounters Date Type Department Care Team Description 12/10/2024 Scan [facility] Scanned, [facility] (SCAN) from Last 3 Months Immunizations Immunization Administration [...] Vaccine ( season) 2024 12/08/2020, 03/12/2020, 02/21/2020 Mammogram Screening 02/16/2025 02/17/2024, 11/26/2022, 10/11/2021, Additional history exists Annual Physical 05/27/2025 05/27/2024, 10/2023, 02/05/2022, Additional history exists Zoster Vaccines (1 of 2) 05/27/2025 Pos tponed from 07/09/2015 (Going to Outside Clinic) Colorectal Cancer Screening Colonoscopy (10 Years) 02/04/2027 02/04/2017 DTaP, Tdap and Td Vaccines (2 - Td or Tdap) 04/05/2029 04/05/2019 Hepatitis C Completed 02/05/2022 PHQ-2 (Physician [place]) Completed 05/27/2024 Influenza Adult Completed 01/13/2025, 12/01, 12/02/2023, Additional history exists Hepatitis A Vaccines Aged Out No long er eligible based on patient's age to complete this topic Meningococcal B Vaccine Aged Out No l onger eligible based on patient's age to complete this topic Meningococcal Vaccine Aged Out No dina keshav eligible based on patient's age to complete this topic RSV Immunizations Under 20 Months Aged Out No longer eligible based on patient's age to complete this topic Procedures Procedure Name Priority Date/Time Associated Diagnosis Comments OUTSIDE LAB (SCAN ORDER) 12/10/2024 MAMMOGRAM GENERIC (SCAN ORDER) 02/17/2024 COLONOSCOPY GENERIC (SCAN ORDER) 02/04/2017 from Last 3 Months or Most Recently Relevant to Health Maintenance Results * OUTSIDE LAB (SCAN ORDER) (12/10/2024) 12/10/2024 [facility] Scanned SCANNING Final Resu lt * MAMMOGRAM GENERIC (SCAN ORDER) (02/17/2024) Anatomical Region Laterality Modality Other 02/17/2024 [facility] Scanned SCANNING Final Resu lt * COLONOSCOPY GENERIC (02/04/2017) 02/04/2017 Narrative 02/04/2017 Ordered by an unspecified provider. us Documents Scanned SCANNING Final Result from Last 3 Months or Most Recently Relevant to Health Maintenance Insurance [employer] Care Teams Official Greeter Relationship Specialty Start Date End Date Diego Stacy DO [address] [place] [id number] PCP - General FAMILY PRACTICE 10/06/18
--- OUTSIDE RECORDS SUMMARY | 2025-02-18 07:52 | XMS_ITS | Clinical Summary ---
Author Organization [facility] [employer] Address [address] [place] [address] Care Team Providers Care Epidemiology Internship Name Role Phone Unavailable Primary Care Provider Unavailabl e Source Comments [facility] [employer],non-owned Affiliates and Associated Physician Practices is amultiple site organization consisting of ambulatory clinics and hospital sitesin [place], [place], [place] and [place]. This disclosure is being madepursuant to the Care Everywhere program and may not contain all information available regarding this patient. Last updated 17.[facility] [employer] Allergies No known active allergies Medications * Be aware that medications may not be up to date on this document. Alwaysverify current medications with the patient. etonogestrel-et hinyl estradiol (NUVARING) 0.12-0.015 MG/24HR vaginal ring Insert 1 Device into the vagina once. Remove ring after 3 weeks, followed by 1 week-rest, then insert new ring Active beclomethasone (BECONASE AQ) 42 MCG/SPRAY Sheridan 1 [place]idan into the nose 2 times daily. 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
--- OUTSIDE RECORDS SUMMARY | 2025-02-18 07:52 | XMS_ITS | Encounter Summary ---
Author Organization [facility] Address [address] [place] [id number] Care Team Providers Care Environmental Field Services Technician Name Role Phone Diego Stacy DO Primary Care Provider + Encounter Details Date Type Department Care Team (Late st Contact Info) Description 09/25/2021 DoctorBasehart Message Enc [facility] Family & Internal Medicine [facility] [address] [place] [address] Diego Stacy DO [address] [place], [place] [id number] clobetasol cream refill Social History Tobacco Use [...] Total Score: 0 02/02/20 21 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
== END 2025-02-18 07:48 | disposition home or self-care (01) ==
LOC: ANHFOHIMG 07:50
PROVIDERS: PCP Student in an Organized Health Care Education/Training Program; Visit Provider Obstetrics & Gynecology
DX: Z12.31 Encounter for screening mammogram for malignant neoplasm of breast (principal)
CPT/HCPCS: 77063; 77067